=== PATIENT | male | born 1960 | race Caucasian/White ===

== ENCOUNTER 2020-05-30 15:01 | Outpatient (REF) | payer OTHER, SELFPAY ==
[2020-05-30 16:09] LABS: Hematocrit 45.4 % (42-52); Hemoglobin 14.8 g/dl (14.0-18.0); Mean Corpuscular HGB Conc 32.6 g/dl (31.0-36.0); Mean Corpuscular Hemoglobin 27.8 pg (27.0-33.0); Mean Corpuscular Volume 85.3 fL (80-98); Mean Platelet Volume 9.4 fL (9.4-12.4); Platelet Count 401 X10*3/uL (160-400); Red Blood Count 5.32 X10*6/uL (4.60-5.80); Red Cell Distribution Width 13.3 % (11.0-16.0); White Blood Count 7.3 X10*3/uL (4.8-10.8)
[2020-05-30 16:43] LABS: Alanine Aminotransferase 23 U/L (0-40); Albumin Level 4.6 g/dL (3.5-5.0); Alkaline Phosphatase 77 U/L (39-117); Anion Gap 11 (12-20); Aspartate Amino Transferase 26 U/L (5-37); Bilirubin Direct 0.3 mg/dL (0.0-0.5); Bilirubin Total 0.5 mg/dL (0.0-1.0); Blood Urea Nitrogen 19 mg/dL (9-16); Calcium 9.8 mg/dL (8.4-10.2); Carbon Dioxide 31 mmol/L (22-29); Chloride 104 mmol/L (96-108); Cholesterol 146 mg/dL; Estimated Glomerular Filt Rate > 60; Glucose Random 96 mg/dL (60-115); HDL Cholesterol 50 mg/dL; LDL Cholesterol Calculated 77 mg/dl; Magnesium 2.1 mg/dL (1.6-2.6); Potassium 4.8 mmol/l (3.3-5.1); Sodium 141 mmol/L (135-145); Total Protein 7.8 g/dL (6.5-8.0); Triglycerides 97 mg/dL
[2020-05-30 17:05] LABS: Vitamin D 25-OH Total 31.3 ng/mL (>30)
[2020-05-31 14:19] LABS: CT PCR NOT DETECTED (Not Detect.); NG PCR NOT DETECTED (Not Detect.)
[2020-06-02 08:43] LABS: HBS Num1 6.67 mIU/mL (0-7.99); HBsAGNum1 0.15 S/CO (0.00-0.99); HIV AB/AG Nonreactive (Nonreactive); HIV Num 1 0.13 S/CO (0.00-0.99); Hepatitis B Surface Antigen Negative (Negative); ~HepC Num1 12.45 S/CO (0.00-0.79); ~Hepatitis B Surface Antibody NONREACTIVE (Nonreactive); ~Hepatitis C Antibody Reactive (Nonreactive)
[2020-06-02 08:50] LABS: Syphilis Screen Nonreactive (Nonreactive)
[2020-06-02 09:45] LABS: HBc Num1 7.47 S/CO (0.00-0.79)
[2020-06-02 10:06] LABS: HBc Num3 7.47 S/CO; Hepatitis B Core Antibody Reactive (Nonreactive)
[2020-06-03 09:06] LABS: Hepatitis B Core Antibody IgM NON-REACTIVE (NON-REACTIVE)
[2020-06-05 08:50] LABS: Hepatitis A Antibody IgM 0.64 Index (0-0.79); ~Hepatitis A Antibody IgM Nonreactive (Nonreactive)
== END 2020-05-30 15:02 | disposition home or self-care (01) ==
LOC: HO.LAB 15:01
DX: Z00.00 Encounter for general adult medical examination without abnormal findings (principal); R53.83 Other fatigue; J44.9 Chronic obstructive pulmonary disease, unspecified; Z20.2 Contact with and (suspected) exposure to infections with a predominantly sexual mode of transmission
CPT/HCPCS: 36415; 80053; 80061; 80076; 82248; 82306; 83735; 85027; 86704; 86705; 86706; 86709; 86780; 86803; 87340; 87389; 87491; 87591

== ENCOUNTER → 2020-07-09 10:51 | Outpatient (BNVA) | payer OTHER, SELFPAY | PROVIDERS: Visit Provider Internal Medicine | DX: Z76.89 Persons encountering health services in other specified circumstances (principal) ==

== ENCOUNTER → 2020-10-16 10:30 | Outpatient (BNVA) | payer OTHER, SELFPAY | PROVIDERS: PCP Physician Assistant; Visit Provider Internal Medicine ==

== ENCOUNTER 2020-10-23 14:00 | Outpatient (RCR) | payer OTHER, SELFPAY ==
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
--- NOTE | 2020-12-05 13:55 | MHC.PT.DC ---
[facility] [place] Office [place] Office [place] Office [address] Kathryn Guallpa 140 [facility] [phone] F: [phone] F: [phone] F: [phone] F: [phone] Physical Therapy Discharge Report Diagnosis: low back pain Date of Surgery: Date of Evaluation: 10/01/20 Date of Discharge: 10/31/20 Treatments to Date: 4 Cancellations to Date: 0 No Shows to Date: Discharge Status: Achieved Goals Improved Function Independent with HEP Discharge Summary: Pt progressed well over the course of skilled PT making progress on impairments and functional limitations resulting in an improved quality of life. Pt is I with HEP and appropriate to d/c to HEP at this time. Electronically signed by: Dayron Parks, PT Please sign and return to therapist. Thank you for your referral.
== END 2020-12-13 10:49 | disposition home or self-care (01) ==
LOC: HO.PTCHIC 14:00
PROVIDERS: PCP Physician Assistant; Visit Provider Physician Assistant
DX: M51.9 Unspecified thoracic, thoracolumbar and lumbosacral intervertebral disc disorder (principal); M54.5 Low back pain
CPT/HCPCS: 97110; 97161

== ENCOUNTER 2020-11-19 10:22 | Outpatient (REF) | payer OTHER, SELFPAY ==
[2020-11-19 13:47] LABS: Hematocrit 47.9 % (42-52); Hemoglobin 15.3 g/dl (14.0-18.0); Mean Corpuscular HGB Conc 31.9 g/dl (31.0-36.0); Mean Corpuscular Hemoglobin 27.9 pg (27.0-33.0); Mean Corpuscular Volume 87.4 fL (80-98); Mean Platelet Volume 10.8 fL (9.4-12.4); Platelet Count 319 X10*3/uL (160-400); Red Blood Count 5.48 X10*6/uL (4.60-5.80); Red Cell Distribution Width 13.4 % (11.0-16.0); White Blood Count 6.5 X10*3/uL (4.8-10.8)
[2020-11-19 14:18] LABS: Estimated Average Glucose 120 mg/dL; Hemoglobin A1c % 5.8 %
[2020-11-19 14:34] LABS: Alanine Aminotransferase 24 U/L (0-40); Albumin Level 4.6 g/dL (3.5-5.0); Alkaline Phosphatase 77 U/L (39-117); Anion Gap 17 (12-20); Aspartate Amino Transferase 28 U/L (5-37); Bilirubin Total 0.5 mg/dL (0.0-1.0); Blood Urea Nitrogen 23 mg/dL (9-16); Calcium 10.2 mg/dL (8.4-10.2); Carbon Dioxide 24 mmol/L (22-29); Chloride 106 mmol/L (96-108); Estimated Glomerular Filt Rate > 60; Glucose Fasting 116 mg/dL (60-99); Potassium 5.2 mmol/L (3.3-5.1); Sodium 142 mmol/L (135-145); Total Protein 7.9 g/dL (6.5-8.0)
[2020-11-19 14:37] LABS: Prostate Specific Antigen Scr 0.27 ng/mL (<0.05-4.0); TSH reflex Free T4 1.99 uIU/mL (0.32-4.0)
== END 2020-11-19 10:23 | disposition home or self-care (01) ==
LOC: HO.10HDL 10:22
PROVIDERS: Visit Provider Physician Assistant
DX: Z12.5 Encounter for screening for malignant neoplasm of prostate (principal); I10 Essential (primary) hypertension
CPT/HCPCS: 36415; 80053; 83036; 84153; 84443; 85027

== ENCOUNTER 2021-01-02 07:05 | Day surgery (SDC) | payer OTHER, SELFPAY ==
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
[2021-01-02 07:26] VITALS: BMI 22.8
[2021-01-02 07:29] VITALS: BP 146/83; PULSE 82; RESP 16; TEMP 37.1; O2SAT 95
[2021-01-02] MEDS: Sodium Phosphate,Mono-Dibasic 133 ML ENEMA PR ×2 (07:34→07:55)
[2021-01-02 08:05] LABS: Amphetamine Screen Urine Not Detected (Not Detect); Barbiturates, Urine Not Detected (Not Detect); Benzodiazepines Screen Urine Not Detected (Not Detect); Cannabinoid Screen Urine Not Detected (Not Detect); Cocaine Screen Urine Not Detected (Not Detect); Opiate Screen Urine POSITIVE (Not Detect); Phencyclidine Screen Urine Not Detected (Not Detect)
--- NOTE | 2021-01-02 08:11 | MHC.SHP ---
Pre-Procedural Eval Section B Chief Complaint: screening Details of Present Illness: screening Relevant Family History (Specify if Yes): Yes Relevant Social History: None Present Medications: see Short Stay Collaborative assessment Medical History: No relevant PMH History of Previous Operations: No relevant previous surgery Allergies: Allergies Allergy/AdvReac Type Severity Reaction Status Date / Time cat dander [CATS] Allergy Mild ASTHMA Verified 10/16/20 10:32 SYMPTOMS mold Allergy Unknown UNKNOWN Verified 10/16/20 10:32 DUST Allergy Mild ASTHMA Uncoded 04/10/20 14:52 SYMPTOMS Review of Systems Sugical H&P ROS: Negative: Constitution, Cardiovascular, Respiratory, Neurological, Psychiatric, Hem-Onc, Allergic/Immunologic, Gastrointestinal, Genitourinary, Musculoskeletal, Integumentary, Endocrine and Eyes/Ears/Nose/Throat Exam Surgical H&P Exam: Normal: HEENT, Normal: Heart, Normal: Lungs, Normal: Extremities, Normal: Abdomen, Normal: Skin and Normal: Neurological Plan Diagnosis/Plan: Unchanged I have reviewed the history and physical and performed a pertinent physical examination on my patient. No changes have occurred unless specified.
[2021-01-02] MEDS: Lactated Ringers 1,000 ML 100 ML IVCONT (08:41)
--- NOTE | 2021-01-02 08:58 | PC.NURSE ---
Patient stated that he started his prep last night at 6pm and finished it completely. He was not aware it was clear liquids the entire day before, so he ate a chicken salad for lunch and a chicken parm at dinner, last meal being at 530pm. Output is still liquid brown per patient. he stated he gave himself an enema at home and he was straining so much that his hemorrhoids are now bleeding. Dr. Alas aware of all of this. Two enemas given per order, tolerated well. Final output light yellow and clear, no solids.
[2021-01-02 09:25] VITALS: BP 118/75; PULSE 42; RESP 20; TEMP 36.9; O2SAT 98
[2021-01-02 09:39] VITALS: BP 144/81; PULSE 76; RESP 18; TEMP 36.9; O2SAT 96
--- NOTE | 2021-01-02 12:03 | OP_ITS ---
SURGEON: Tor Alas MD INDICATIONS: Colon cancer screening and prior history of adenomatous colon polyps. PREOPERATIVE DIAGNOSIS: POSTOPERATIVE DIAGNOSIS: PROCEDURE PERFORMED: Colonoscopy to the terminal ileum with snare polypectomy. ESTIMATED BLOOD LOSS: COMPLICATIONS: ANESTHESIA: ASSISTANTS: SPECIMENS: MEDICATIONS: Monitored anesthesia care. DESCRIPTION OF PROCEDURE: History and physical performed. The risks and benefits of the procedure were explained to the patient. Informed consent was obtained. The patient was placed in left lateral decubitus position. A digital rectal exam was performed and was found to be normal. The Olympus pediatric video colonoscope was introduced into the rectum and advanced to the cecum without difficulty. The cecum was identified by transillumination, palpation, and identification of the ileocecal valve. Examination was performed and the scope was removed. He tolerated the procedure well and was taken to recovery area in stable condition. FINDINGS: The terminal ileum was normal. The visualized colonic mucosa was normal. The quality of prep was fair with a large amount of undigested food as the patient had chicken parmesan on the day before his bowel before his procedure. Two polyps were identified and removed with a snare, both measured approximately 6 mm. The first located at 60 cm and second was located in the rectum. No other polyps were identified. Retroflexed examination was normal. IMPRESSION: Colon polyps. RECOMMENDATIONS: 1. Follow up the biopsy results. 2. Consider repeat colonoscopy in 2 to 3 years based on limitations of today's prep. MD GLORIA Hoang/GERONIMOL / [id number] MTDD
== END 2021-01-02 10:05 | disposition home or self-care (01) ==
PROVIDERS: Nurse Practitioner; PCP Internal Medicine; Visit Provider Internal Medicine Gastroenterology
PROC: 0DJD8ZZ Inspection of Lower Intestinal Tract, Via Natural or Artificial Opening Endoscopic (ICD-10-PCS; CPT 45378; principal; 2021-01-02 08:10)
DX: Z12.11 Encounter for screening for malignant neoplasm of colon (principal); Z86.010 Personal history of colon polyps; D12.4 Benign neoplasm of descending colon; D12.8 Benign neoplasm of rectum; I10 Essential (primary) hypertension; J44.9 Chronic obstructive pulmonary disease, unspecified; B19.20 Unspecified viral hepatitis C without hepatic coma; Q89.01 Asplenia (congenital); F14.10 Cocaine abuse, uncomplicated; F11.10 Opioid abuse, uncomplicated; Z87.828 Personal history of other (healed) physical injury and trauma; Z18.89 Other specified retained foreign body fragments; Z90.81 Acquired absence of spleen
CPT/HCPCS: 45385; 80307; 88305

== ENCOUNTER → 2021-02-05 11:12 | Outpatient (BNVA) | payer OTHER, SELFPAY | PROVIDERS: PCP Internal Medicine; Visit Provider Internal Medicine | DX: J44.9 Chronic obstructive pulmonary disease, unspecified (principal); I10 Essential (primary) hypertension; Q89.01 Asplenia (congenital); B19.20 Unspecified viral hepatitis C without hepatic coma; J30.81 Allergic rhinitis due to animal (cat) (dog) hair and dander; J30.89 Other allergic rhinitis; Z79.899 Other long term (current) drug therapy | CPT/HCPCS: 99212 ==

== ENCOUNTER → 2021-08-04 10:08 | Outpatient (BNVA) | payer OTHER, SELFPAY | PROVIDERS: PCP Internal Medicine; Visit Provider Internal Medicine | DX: J44.9 Chronic obstructive pulmonary disease, unspecified (principal) | CPT/HCPCS: 94010; 99212 ==

== ENCOUNTER → 2021-10-13 10:49 | Outpatient (BNVA) | payer OTHER, SELFPAY | PROVIDERS: PCP Internal Medicine; Visit Provider Internal Medicine | DX: J44.9 Chronic obstructive pulmonary disease, unspecified (principal); M54.50 Low back pain, unspecified | CPT/HCPCS: 99212 ==

== ENCOUNTER 2021-10-22 12:35 | Emergency (ER) | payer OTHER, SELFPAY ==
--- NOTE | 2021-10-22 | ECG_ITS ---
Test Reason : htn / fatigue Blood Pressure : / mmHG Vent. Rate : 090 BPM Atrial Rate : 090 BPM P-R Int : 182 ms QRS Dur : 118 ms QT Int : 374 ms P-R-T Axes : 069 -13 065 degrees QTc Int : 457 ms Normal sinus rhythm Inferior infarct , age undetermined Abnormal ECG When compared with ECG of 18-DEC-2013 00:34, Criteria for Lateral infarct are no longer Present Questionable change in QRS axis Referred By: Generic ED Physician Electronically Signed By:MANUEL THOMPSON
--- NOTE | ~2021-10-22 | CT_ITS ---
EXAMINATION: CT HEAD WITHOUT CONTRAST CLINICAL INFORMATION: Dizziness, vertigo, unsteady gait. COMPARISON: None. TECHNIQUE: Contiguous axial imaging was performed from the skull base to vertex without intravenous administration of contrast. This CT examination was performed using dose optimization techniques as appropriate, variously including the following: *Automated exposure control *Adjustment of mA and/or kV according to patient size (this includes techniques or standardized protocols for targeted exams where dose is matched to indication/reason for exam; i.e. extremities or head) *Use of iterative reconstruction technique DLP: 699 mGy-cm FINDINGS: There is no evidence of acute intracranial hemorrhage or edematous territorial infarction. There is no abnormal attenuation within the brain parenchyma. Webber-white matter differentiation is preserved. The ventricles are normal in size and configuration. No evidence for obstructive hydrocephalus. No abnormal mass effect or midline shift. No extra-axial fluid collections. No acute soft tissue or osseous abnormalities. The mastoid air cells and paranasal sinuses are clear. CT/CT head/brain wo con IMPRESSION: No evidence of acute intracranial hemorrhage or edematous territorial infarction.
[2021-10-22 13:50] VITALS: BP 162/91; PULSE 99; RESP 18; TEMP 36.4; O2SAT 96; BMI 24.6
[2021-10-22 14:05] LABS: MANUAL DIFF FLAG NO
[2021-10-22 14:08] LABS: Basophils Percent Auto 0.3 % (0-2); Eosinophils Absolute Auto 0.1 X10*3/uL (0.0-0.4); Eosinophils Percent Auto 0.3 % (0-4); Hematocrit 45.6 % (42.0-52.0); Hemoglobin 15.5 g/dl (14.0-18.0); Imm Gran Abs Auto 0.05 X10*3/uL (0.00-0.03); Imm Gran Pct Auto 0.3 % (0.0-0.4); Lymphocytes Percent Auto 13.4 % (20-40); Mean Corpuscular Hemoglobin 29.3 pg (27.0-33.0); Mean Corpuscular Volume 86.2 fL (80.0-98.0); Mean Platelet Volume 8.7 fL (9.4-12.4); Monocytes Percent Auto 6.8 % (2-11); Neutrophils Absolute Auto 11.5 x10*3/uL (2.0-8.3); Neutrophils Percent Auto 78.9 % (45-73); Platelet Count 431 X10*3/uL (160-400); Red Blood Count 5.29 X10*6/uL (4.60-5.80); Red Cell Distribution Width 14.6 % (11.0-16.0); White Blood Count 14.6 X10*3/uL (4.8-10.8)
[2021-10-22 14:33] LABS: Anion Gap 11 (12-20); Blood Urea Nitrogen 21 mg/dL (9-16); Calcium 10.6 mg/dL (8.4-10.2); Carbon Dioxide 31 mmol/L (22-29); Chloride 104 mmol/L (96-108); Creatinine Clr Calc Pharmacy 73.1; Estimated Glomerular Filt Rate > 60; Glucose Random 129 mg/dL (60-115); Potassium 4.9 mmol/L (3.3-5.1); Sodium 141 mmol/L (135-145)
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
[2021-10-22 17:22] VITALS: BP 148/86; PULSE 84; RESP 16; TEMP 36.8; O2SAT 97
[2021-10-22 17:37] VITALS: BP 133/95; PULSE 99; RESP 18; O2SAT 98
--- NOTE | 2021-10-22 17:44 | PC.NURSE ---
no neuro deficits or headache. states dizziness is improving.
[2021-10-22] MEDS: Meclizine HCl 25 MG TABLET PO (17:52)
== END 2021-10-22 19:22 | disposition home or self-care (01) ==
PROVIDERS: Emergency Provider Internal Medicine; PCP Nurse Practitioner Family
DX: R42 Dizziness and giddiness (principal); I10 Essential (primary) hypertension; F41.9 Anxiety disorder, unspecified; F11.20 Opioid dependence, uncomplicated
CPT/HCPCS: 36415; 70450; 80048; 85025; 93005; 99284

== ENCOUNTER 2022-02-09 18:00 | Outpatient (REF) | payer OTHER, SELFPAY ==
[2022-02-09 18:42] LABS: Influenza A PCR NEGATIVE (Negative); Influenza B PCR NEGATIVE (Negative); Resp Syncy Virus RNA Qual PCR NEGATIVE (Negative); SARS COV2 PCR INHOUSE NEGATIVE (Negative)
== END 2022-02-09 18:01 | disposition home or self-care (01) ==
LOC: HO.LNP 18:00
PROVIDERS: Visit Provider Emergency Medicine
DX: R68.89 Other general symptoms and signs (principal); Z20.822 Contact with and (suspected) exposure to COVID-19
CPT/HCPCS: 0241U

== ENCOUNTER → 2022-02-22 13:11 | Outpatient (BNVA) | payer OTHER, SELFPAY | PROVIDERS: PCP Nurse Practitioner Family; Visit Provider Internal Medicine | DX: J44.9 Chronic obstructive pulmonary disease, unspecified (principal) | CPT/HCPCS: 99212 ==

== ENCOUNTER → 2022-04-27 10:40 | Outpatient (BNVA) | payer OTHER, SELFPAY | PROVIDERS: PCP Nurse Practitioner Family; Visit Provider Internal Medicine | DX: J44.9 Chronic obstructive pulmonary disease, unspecified (principal) | CPT/HCPCS: 99212 ==

== ENCOUNTER → 2022-06-28 13:29 | Outpatient (BNVA) | payer OTHER, SELFPAY | PROVIDERS: PCP Nurse Practitioner Family; Visit Provider Internal Medicine | DX: J44.9 Chronic obstructive pulmonary disease, unspecified (principal); Z79.899 Other long term (current) drug therapy | CPT/HCPCS: 99212 ==

== ENCOUNTER 2022-08-02 09:17 | Outpatient (REF) | payer OTHER, SELFPAY ==
--- NOTE | ~2022-08-02 | XR_ITS ---
EXAMINATION: XR CHEST CLINICAL INFORMATION: Post Covid condition COMPARISON: X-ray 06/24/2017 TECHNIQUE: 2 views of the chest were obtained. FINDINGS: The cardiomediastinal silhouette is within normal limits. Redemonstrated is a metallic density over the left midchest, which is unchanged in position on the frontal projection. Lungs are symmetrically expanded. There is hazy opacity projected over bilateral lower lungs. No pleural effusion. No pulmonary edema or pneumothorax. XR/XR chest 2V IMPRESSION: Hazy bibasilar opacities could reflect subtle infiltrate from infectious/inflammatory process.
[2022-08-02 09:58] LABS: MANUAL DIFF FLAG NO
[2022-08-02 10:13] LABS: Basophils Absolute Auto 0.1 X10*3/uL (0.0-0.2); Basophils Percent Auto 0.7 % (0-2); Eosinophils Absolute Auto 0.2 X10*3/uL (0.0-0.4); Eosinophils Percent Auto 1.6 % (0-4); Hematocrit 46.8 % (42.0-52.0); Hemoglobin 15.6 g/dl (14.0-18.0); Imm Gran Abs Auto 0.09 X10*3/uL (0.00-0.03); Imm Gran Pct Auto 0.7 % (0.0-0.4); Lymphocytes Absolute Auto 2.6 X10*3/uL (1.2-4.9); Lymphocytes Percent Auto 21.3 % (20-40); Mean Corpuscular HGB Conc 33.3 g/dl (31.0-36.0); Mean Corpuscular Hemoglobin 28.6 pg (27.0-33.0); Mean Corpuscular Volume 85.9 fL (80.0-98.0); Mean Platelet Volume 9.1 fL (9.4-12.4); Monocytes Absolute Auto 1.1 X10*3/uL (0.1-1.2); Monocytes Percent Auto 9.5 % (2-11); Neutrophils Percent Auto 66.2 % (45-73); Platelet Count 474 X10*3/uL (160-400); Red Blood Count 5.45 X10*6/uL (4.60-5.80); White Blood Count 12.1 X10*3/uL (4.8-10.8)
== END 2022-08-02 09:18 | disposition home or self-care (01) ==
LOC: HO.LAB 09:17
PROVIDERS: PCP Nurse Practitioner Family; Visit Provider Internal Medicine
DX: J44.9 Chronic obstructive pulmonary disease, unspecified (principal); U09.9 Post COVID-19 condition, unspecified; Z79.899 Other long term (current) drug therapy
CPT/HCPCS: 36415; 71046; 85025; 86141; 99212

== ENCOUNTER → 2022-08-31 14:19 | Outpatient (BNVA) | payer OTHER, SELFPAY | PROVIDERS: PCP Nurse Practitioner Family; Visit Provider Internal Medicine | DX: J44.9 Chronic obstructive pulmonary disease, unspecified (principal); U09.9 Post COVID-19 condition, unspecified; R05.9 Cough, unspecified | CPT/HCPCS: 99212 ==

== ENCOUNTER → 2022-11-01 10:45 | Outpatient (BNVA) | payer OTHER, SELFPAY | PROVIDERS: PCP Nurse Practitioner Family; Visit Provider Internal Medicine | DX: J44.9 Chronic obstructive pulmonary disease, unspecified (principal); R05.9 Cough, unspecified | CPT/HCPCS: 99212 ==

== ENCOUNTER → 2022-12-27 11:26 | Outpatient (BNVA) | payer OTHER, SELFPAY | PROVIDERS: PCP Nurse Practitioner Family; Visit Provider Internal Medicine | DX: J44.9 Chronic obstructive pulmonary disease, unspecified (principal); R05.9 Cough, unspecified | CPT/HCPCS: 99212 ==

== ENCOUNTER 2023-03-04 09:27 | Outpatient (REF) | payer OTHER, SELFPAY ==
--- NOTE | ~2023-03-04 | US_ITS ---
EXAMINATION: US ABDOMEN COMPLETE CLINICAL INFORMATION: Cirrhosis of liver without ascites. COMPARISON: Abdomen x-ray dated 05/08/2015. CT abdomen and pelvis without contrast dated 05/05/2015. Ultrasound abdomen complete dated 11/25/2009. TECHNIQUE: Real-time imaging of the abdominal viscera. Technically difficult study secondary to bowel gas. FINDINGS: PANCREAS: Pancreas could not be seen secondary to overlying bowel gas. ABDOMINAL AORTA: The proximal and distal segments are normal in caliber. The mid abdominal aorta could not be seen. INFERIOR VENA CAVA: Visualized portions are normal. LIVER: The liver is normal in size. The liver contour is normal. There is diffuse increased liver parenchymal echogenicity, consistent with hepatic steatosis. There are areas of focal fatty sparing seen adjacent to the gallbladder. No focal hepatic lesion. There is no intrahepatic biliary duct dilatation seen. GALLBLADDER: Normal. The gallbladder is physiologically distended without evidence of stones, sludge, polyps, wall thickening or pericholecystic fluid. COMMON BILE DUCT: Normal in caliber measuring 0.8 cm in diameter. RIGHT KIDNEY: No hydronephrosis or renal calculi. The kidney measures 9.9 cm in maximum dimension. A benign 4.1 cm Bosniak class I renal cyst is noted which requires no additional imaging or follow up. No solid renal masses are seen. LEFT KIDNEY: No hydronephrosis. No renal calculi or focal parenchymal lesions. The kidney measures 10.9 cm in maximum dimension. A benign 1.7 cm Bosniak class I renal cyst is noted which requires no additional imaging or follow up. No solid renal masses are seen. SPLEEN: Surgically removed. A residual small splenule is noted measuring 7.8 x 4.2 x 4.4 cm. FREE FLUID: None. US/US abdomen complete IMPRESSION: 1. Hepatic steatosis with areas of focal fatty sparing. 2. Benign Bosniak class I renal cysts need no additional imaging or follow up. 3. Status post splenectomy with residual splenic tissue/splenule.
== END 2023-03-04 09:28 | disposition home or self-care (01) ==
LOC: HO.US 09:27
PROVIDERS: PCP Nurse Practitioner Family; Visit Provider Internal Medicine Gastroenterology
DX: K74.60 Unspecified cirrhosis of liver (principal)
CPT/HCPCS: 76700

== ENCOUNTER 2023-05-09 10:00 | Outpatient (AMB) | payer OTHER, SELFPAY ==
[2023-05-09 10:02] VITALS: BP 104/64; PULSE 99; O2SAT 94; BMI 26.6
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
== END 2023-05-09 10:20 | disposition home or self-care (01) ==
PROVIDERS: PCP Nurse Practitioner Family; Visit Provider Internal Medicine
DX: J44.9 Chronic obstructive pulmonary disease, unspecified (principal); R05.9 Cough, unspecified
CPT/HCPCS: 99213

== ENCOUNTER → 2023-05-09 10:00 | Outpatient (BNVA) | payer OTHER, SELFPAY | PROVIDERS: PCP Nurse Practitioner Family; Visit Provider Internal Medicine | DX: J44.9 Chronic obstructive pulmonary disease, unspecified (principal); R05.9 Cough, unspecified | CPT/HCPCS: 99212 ==

== ENCOUNTER 2023-05-17 08:37 | Day surgery (SDC) | payer OTHER, SELFPAY ==
[2023-05-13 11:45] VITALS: BMI 26.6
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
[2023-05-17 09:15] VITALS: BP 162/93; PULSE 88; RESP 18; TEMP 36.6; O2SAT 96
[2023-05-17] MEDS: Lactated Ringers 1,000 ML 100 ML IVCONT (09:20)
--- NOTE | 2023-05-17 09:20 | P.HPSUR_ITS ---
Pre-Procedural Eval Section A Date of Service: 05/17/23 Section B Chief Complaint: GERD, Encounter for screening for malignant Details of Present Illness: see h&p no changes Relevant Family History (Specify if Yes): No Relevant Social History: None Present Medications: see Short Stay Collaborative assessment Medical History: No relevant PMH Allergies: Allergies Allergy/AdvReac Type Severity Reaction Status Date / Time cat dander [CATS] Allergy Mild ASTHMA Verified 05/09/23 10:18 SYMPTOMS mold Allergy Unknown UNKNOWN Verified 05/09/23 10:18 DUST Allergy Mild ASTHMA Uncoded 05/09/23 10:18 SYMPTOMS Review of Systems Sugical H&P ROS: Negative: Constitution, Cardiovascular, Respiratory, Neurological, Psychiatric, Hem-Onc, Allergic/Immunologic, Gastrointestinal, Genitourinary, Musculoskeletal, Integumentary, Endocrine and Eyes/Ears/Nose/Th roat Exam Surgical H&P Exam: Normal: HEENT, Normal: Heart, Normal: Lungs, Normal: Extremities, Normal: Abdomen, Normal: Skin and Normal: Neurological Plan Diagnosis/Plan: Unchanged I have reviewed the history and physical and performed a pertinent physical examination on my patient. No changes have occurred unless specified. Time Spent With Patient Time: Total time managing care of this patient today ____ minutes.
--- NOTE | 2023-05-17 10:00 | PM.OP ---
Brief Operative Note Date of Service: 05/17/23 Pre-op diagnosis: gerd cirrhosis screening Post-op diagnosis: same Surgeon: Tor Alas MD Anesthesia: MAC Was an Ingot Supervisor used for this Procedure?: No Estimated blood loss (mL): 2 Pathology: other Condition: stable Disposition: PACU
[2023-05-17 10:02] VITALS: BP 91/57; PULSE 74; RESP 10; TEMP 36.6; O2SAT 93
[2023-05-17 10:17] VITALS: BP 111/75; PULSE 86; RESP 17; TEMP 36.6; O2SAT 95
--- NOTE | 2023-05-17 10:31 | OP_ITS ---
DATE OF SERVICE: 05/17/2023 SURGEON: Tor Alas MD INDICATIONS: 1. Gastroesophageal reflux disease. 2. Cirrhosis. 3. Colon cancer screening. PREOPERATIVE DIAGNOSIS: POSTOPERATIVE DIAGNOSIS: PROCEDURE PERFORMED: ESTIMATED BLOOD LOSS: COMPLICATIONS: ANESTHESIA: Monitored anesthesia care. ASSISTANTS: SPECIMENS: PROCEDURES PERFORMED: Upper endoscopy, colonoscopy to the terminal ileum with biopsy. DESCRIPTION OF PROCEDURE: A history and physical were performed. The risks and benefits of the procedure were explained to the patient. Informed consent was obtained. The patient was placed in the left lateral decubitus position. The Olympus video gastroscope was introduced into the esophagus, stomach, and duodenum. Examination was performed, and the scope was removed. He was repositioned for colonoscopy. A digital rectal exam was performed and was found to be normal. The Olympus pediatric video colonoscope was introduced into the rectum and advanced to the cecum. The cecum was identified by transillumination, palpation, and identification of the ileocecal valve. Examination was performed, and the scope was removed. He tolerated both procedures well and was taken to recovery in stable condition. FINDINGS: Upper endoscopy. 1. Esophagus. The esophagus was normal. There was no esophagitis. 2. Stomach. The stomach showed no evidence of masses, ulcers, or polyps. There was no portal hypertensive gastropathy. 3. Duodenum, the bulb and second portion were normal. Colonoscopy: Limited views of the terminal ileum were normal. There was some liquid stool and small amounts of stool chunks that were present in the right colon and sigmoid, limiting sensitivity examination for detection of small polyps. This was washed and suctioned. A single polyp measuring less than 5 mm was identified at 75 cm and removed with the biopsy forceps. No other polyps were identified. Retroflexed examination showed moderate-sized internal hemorrhoids. IMPRESSION: 1. Normal upper endoscopy. 2. Colon polyp. RECOMMENDATION: 1. Follow up the biopsy results. MD GLORIA Hoang/PADMINI / [id number]
== END 2023-05-17 10:55 | disposition home or self-care (01) ==
PROVIDERS: PCP Nurse Practitioner Family; Visit Provider Internal Medicine Gastroenterology
PROC: (CPT 43235; principal; 2023-05-17 09:40)
DX: K21.9 Gastro-esophageal reflux disease without esophagitis (principal); K74.60 Unspecified cirrhosis of liver; Z12.11 Encounter for screening for malignant neoplasm of colon; D12.4 Benign neoplasm of descending colon; K64.8 Other hemorrhoids; Z86.010 Personal history of colon polyps; J44.9 Chronic obstructive pulmonary disease, unspecified; I10 Essential (primary) hypertension; F19.10 Other psychoactive substance abuse, uncomplicated; B19.20 Unspecified viral hepatitis C without hepatic coma
CPT/HCPCS: 43235; 45380; 88305

== ENCOUNTER 2023-06-30 10:19 | Outpatient (AMB) | payer OTHER, SELFPAY ==
[2023-06-30 10:25] VITALS: BP 110/64; PULSE 100; O2SAT 94; BMI 26.0
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
== END 2023-06-30 10:53 | disposition home or self-care (01) ==
PROVIDERS: PCP Nurse Practitioner Family; Visit Provider Internal Medicine
DX: J44.9 Chronic obstructive pulmonary disease, unspecified (principal); R05.9 Cough, unspecified
CPT/HCPCS: 99213

== ENCOUNTER → 2023-06-30 10:19 | Outpatient (BNVA) | payer OTHER, SELFPAY | PROVIDERS: PCP Nurse Practitioner Family; Visit Provider Internal Medicine | DX: J44.9 Chronic obstructive pulmonary disease, unspecified (principal); R05.9 Cough, unspecified | CPT/HCPCS: 99212 ==

== ENCOUNTER 2023-09-08 09:49 | Outpatient (AMB) | payer MEDICARE, SELFPAY ==
[2023-09-08 09:53] VITALS: BP 130/64; PULSE 112; O2SAT 94; BMI 25.7
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
== END 2023-09-08 10:31 | disposition home or self-care (01) ==
PROVIDERS: PCP Nurse Practitioner Family; Visit Provider Internal Medicine
DX: J44.1 Chronic obstructive pulmonary disease with (acute) exacerbation (principal); R00.0 Tachycardia, unspecified; F41.9 Anxiety disorder, unspecified
CPT/HCPCS: 99214

== ENCOUNTER → 2023-09-08 09:49 | Outpatient (BNVA) | payer MEDICARE, SELFPAY | PROVIDERS: PCP Nurse Practitioner Family; Visit Provider Internal Medicine | DX: J44.1 Chronic obstructive pulmonary disease with (acute) exacerbation (principal); R00.0 Tachycardia, unspecified; F41.9 Anxiety disorder, unspecified | CPT/HCPCS: 99212 ==

== ENCOUNTER 2023-09-22 09:58 | Outpatient (AMB) | payer MEDICARE, SELFPAY ==
[2023-09-22 10:11] VITALS: BP 120/72; PULSE 106; O2SAT 94; BMI 25.2
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
== END 2023-09-22 10:40 | disposition home or self-care (01) ==
PROVIDERS: PCP Nurse Practitioner Family; Visit Provider Internal Medicine
DX: J44.1 Chronic obstructive pulmonary disease with (acute) exacerbation (principal); R05.9 Cough, unspecified; J40 Bronchitis, not specified as acute or chronic
CPT/HCPCS: 99213

== ENCOUNTER → 2023-09-22 09:58 | Outpatient (BNVA) | payer MEDICARE, SELFPAY | PROVIDERS: PCP Nurse Practitioner Family; Visit Provider Internal Medicine | DX: J44.1 Chronic obstructive pulmonary disease with (acute) exacerbation (principal); J40 Bronchitis, not specified as acute or chronic; R05.9 Cough, unspecified | CPT/HCPCS: 99212 ==

== ENCOUNTER 2023-11-08 10:30 | Outpatient (AMB) | payer MEDICARE, SELFPAY ==
[2023-11-08 10:33] VITALS: BP 142/78; PULSE 100; O2SAT 97; BMI 25.7
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
== END 2023-11-08 10:53 | disposition home or self-care (01) ==
PROVIDERS: PCP Nurse Practitioner Family; Visit Provider Internal Medicine
DX: J44.9 Chronic obstructive pulmonary disease, unspecified (principal); R05.9 Cough, unspecified
CPT/HCPCS: 99213

== ENCOUNTER → 2023-11-08 10:30 | Outpatient (BNVA) | payer MEDICARE, SELFPAY | PROVIDERS: PCP Nurse Practitioner Family; Visit Provider Internal Medicine | DX: J44.9 Chronic obstructive pulmonary disease, unspecified (principal); R05.9 Cough, unspecified | CPT/HCPCS: 99212 ==

== ENCOUNTER 2024-01-12 12:27 | Emergency (ER) | payer MEDICARE, SELFPAY ==
--- NOTE | ~2024-01-12 | XR_ITS ---
EXAMINATION: XR CHEST CLINICAL INFORMATION: Shortness of breath COMPARISON: 08/02/2022 TECHNIQUE: 2 views of the chest were obtained. FINDINGS: Metallic density again seen in the subcutaneous tissues of the left anterior chest wall. Otherwise, no significant abnormality is noted involving the heart, lungs, mediastinum, bony thorax or soft tissues. XR/XR chest 2V IMPRESSION: No acute intrathoracic disease.
[2024-01-12 12:34] VITALS: BP 175/82; PULSE 88; RESP 19; TEMP 36.6; O2SAT 98; BMI 23.6
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
[2024-01-12 14:32] VITALS: BP 148/79; PULSE 89; RESP 18; TEMP 36.7; O2SAT 98
--- NOTE | 2024-01-12 14:33 | PC.NURSE ---
patient a&ox3, vss, pt stating he feels as if he cant breathe, cxr previously performed, pt speaking in full sentences and ambulating without noted sob, lungs clear upon auscultation- O2 sat WNL, pt given gingerale as po challange- pt swallowing gingerale and coughs after completly swallowing.
[2024-01-12 14:44] VITALS: BP 128/68
[2024-01-12] MEDS: Lidocaine HCl Viscous 2 % 15 ML SOLUTION 5 ML MUCOUS MEM (15:07)
--- NOTE | 2024-01-12 15:08 | PC.NURSE ---
pt medicated per order
[2024-01-12 15:17] VITALS: BP 128/68; PULSE 88; RESP 18; TEMP 36.7; O2SAT 98
== END 2024-01-12 15:18 | disposition home or self-care (01) ==
PROVIDERS: Emergency Provider Emergency Medicine; PCP Nurse Practitioner Family
DX: R09.A2 Foreign body sensation, throat (principal); R06.02 Shortness of breath
CPT/HCPCS: 71046; 99283

== ENCOUNTER 2024-02-08 11:00 | Outpatient (AMB) | payer MEDICARE, SELFPAY ==
[2024-02-08 11:06] VITALS: BP 110/68; PULSE 93; O2SAT 96; BMI 23.6
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
== END 2024-02-08 11:19 | disposition home or self-care (01) ==
PROVIDERS: PCP Nurse Practitioner Family; Visit Provider Internal Medicine
DX: J44.9 Chronic obstructive pulmonary disease, unspecified (principal); R05.9 Cough, unspecified; J30.9 Allergic rhinitis, unspecified
CPT/HCPCS: 99213

== ENCOUNTER → 2024-02-08 11:00 | Outpatient (BNVA) | payer MEDICARE, SELFPAY | PROVIDERS: PCP Nurse Practitioner Family; Visit Provider Internal Medicine | DX: J44.9 Chronic obstructive pulmonary disease, unspecified (principal); J30.9 Allergic rhinitis, unspecified; Z79.899 Other long term (current) drug therapy | CPT/HCPCS: 99212 ==

== ENCOUNTER 2024-04-09 10:55 | Outpatient (AMB) | payer MEDICARE, SELFPAY ==
[2024-04-09 10:57] VITALS: BP 140/82; PULSE 92; O2SAT 96; BMI 23.3
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
== END 2024-04-09 11:16 | disposition home or self-care (01) ==
PROVIDERS: PCP Nurse Practitioner Family; Visit Provider Internal Medicine
DX: J44.1 Chronic obstructive pulmonary disease with (acute) exacerbation (principal); F41.9 Anxiety disorder, unspecified; J30.9 Allergic rhinitis, unspecified
CPT/HCPCS: 99213

== ENCOUNTER → 2024-04-09 10:55 | Outpatient (BNVA) | payer MEDICARE, SELFPAY | PROVIDERS: PCP Nurse Practitioner Family; Visit Provider Internal Medicine | DX: J44.1 Chronic obstructive pulmonary disease with (acute) exacerbation (principal); J30.9 Allergic rhinitis, unspecified; F41.9 Anxiety disorder, unspecified | CPT/HCPCS: 99212 ==

== ENCOUNTER 2024-10-08 13:19 | Outpatient (AMB) | payer MEDICARE, SELFPAY ==
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
[2024-10-08 13:24] VITALS: BP 120/72; PULSE 80; O2SAT 97; BMI 23.1
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
--- OUTSIDE RECORDS SUMMARY | 2024-10-08 15:28 | XMS_ITS ---
Author Organization [facility] Address [address] [place] [address] Care Team Providers Care Forms Analyst Name Role Phone JAYLEN LEDESMA Primary Care Provider Unava velvet Alas Jr, Tor Unavailable REASON FOR VISIT pathology Encounters Encounter Location Date Provider Diagnosis [facility] [address] [place] [address] 05/19/2023 Tor Alas Jr Plan Of Treatment Next Appt Details Provider Name:Tor diaz Jr, 06/12/2025 10:00:00 AM, [address], [address], [place], [address], Progress Notes * FRANK SHUKLAOB:1960 ( 62 yo M)Acc No.[id number]:05/19/2023 Patient:?TARIQ SHUKLA :1960???Age:62 Y???Sex:Male Address: [address] [place] [address] * true * Date:? Generated for Printi ng/Farichardg/eTransmitting on:?10/08/2024 03:28 PM EDT
--- OUTSIDE RECORDS SUMMARY | 2024-10-08 15:28 | XMS_ITS | Continuity of Care Document ---
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 Name Role Phone Delmy COMMERCIAL AGENT, Anaid M Primary Care Physician Encounter [facility] [place] Date(s): 09/21/24 - 09/24/[address] [address] Discharge Disposition: A-D/C Home Attending Physician: Jareth Loza MD Admitting Physician: Irwin Campbell MD Referring Physician: Not on Staff, Referring MD Encounter Type: Disch IP Allergies, Adverse Reactions, Alerts No Known Medication Allergies Substance Criticality Severity Reaction Reaction Severity Status Cats Active Dust Active Mold Active Immunizations Given and Recorded Vaccine Date Status Refusal Reason influenza virus vaccine, inactivated 1 05/25/24 Gi john influenza virus vaccine, inactivated 06/07/23 Adriel rded influenza virus vaccine, inactivated 06/30/21 Adriel rded influenza virus vaccine, inactivated 04/13/20 Adriel rded influenza virus vaccine, inactivated 05/04/19 Adriel rded influenza virus vaccine, inactivated 05/09/17 Adriel rded influenza virus vaccine, inactivated 05/13/16 Adriel rded influenza virus vaccine, inactivated 05/06/15 Adriel rded influenza virus vaccine, inactivated 06/06/10 Adriel rded RSV vaccine preF3, recombinant 08/08/23 Recorded SARS-CoV-2(COVID-19)mRNA-LNP vac([id number]) 06/07/23 Recorded pneumococcal 13-valent vaccine 04/13/22 Given SARS-CoV-2 (COVID-19) mRNA-1273 vaccine 12/14/21 R ecorded SARS-CoV-2 (COVID-19) mRNA-1273 vaccine 07/14/21 R ecorded SARS-CoV-2 (COVID-19) mRNA BNT-162b2 vac 10/11/20 Recorded SARS-CoV-2 (COVID-19) mRNA BNT-162b2 vac 09/20/20 Recorded pneumococcal 23-valent vaccine 09/10/20 Recorded tetanus/diphtheria/pertussis, acel(Tdap) 09/10/20 Recorded zoster vaccine, inactivated 03/01/19 Recorded zoster vaccine, inactivated 12/09/18 Recorded 1Result Comment: [facility] vial [id number] Medications Albuterol (Eqv-Proventil HFA) 90 mcg/inh inhalation aerosol 2 puffs, Inhalation, Every 6 hours, 0 Refills, Maintenance, 01/20/21 9:54:00 AM EDT, Partial fill upon patient request if the prescription is for a schedule II opioid drug. Start Date: 01/20/21 Status: Ordered Repeat number: 1 aspirin 81 mg oral delayed release tablet 81 mg, By Mouth, Daily, # 30 tablet, Refills 2, Tot. Refills 2, Maintenance, 09/24/24 8:31:00 AM EST,Route to Pharmacy Electronically, [facility], Partial fill upon patient request if the prescription is for a schedule II opioid drug., 175, cm, 09/24/24 3:49:00 EST, Height, 69.5, kg, 09/21/24 18:47:00 EST, Dry Weight Start Date: 09/24/24 Stop Date: 12/23/24 Status: Ordered Quantity: 30.0 Unit: tablet Repeat number: 3 atorvastatin 80 mg oral tablet = 80 mg, By Mouth, Daily at bedtime, # 30 tablet, 2 Refills, Maintenance, 09/24/24 8:31:00 AM EST, Tablet, [facility], Partial fill upon patient request if the prescription is for a schedule II opioid drug., 175, cm, 09/24/24 3:49:00 EST, Height, 69.5, kg, 09/21/24 18:47:00 EST, Dry Weight Start Date: 09/24/24 Stop Date: 12/23/24 Status: Ordered Quantity: 30.0 Unit: tablet Repeat number: 3 clopidogrel 75 mg oral tablet 75 mg, By Mouth, Daily, # 30 tablet, Refills 2, Tot. Refills 2, Maintenance, 09/24/24 8:31:00 AM EST,Route to Pharmacy Electronically, [facility], Partial fill upon patient request if the prescription is for a schedule II opioid drug., 175, cm, 09/24/24 3:49:00 EST, Height, 69.5, kg, 09/21/24 18:47:00 EST, Dry Weight Start Date: 09/24/24 Stop Date: 12/23/24 Status: Ordered Quantity: 30.0 Unit: tablet Repeat number: 3 dapagliflozin 10 mg oral tablet = 10 mg, By Mouth, Daily, # 30 tablet, 2 Refills, Maintenance, 09/24/24 8:31:00 AM EST, Tablet, [facility], Partial fill upon patient request if the prescription is for a schedule II opioid drug., 175, cm, 09/24/24 3:49:00 EST, Height, 69.5, kg, 09/21/24 18:47:00 EST, Dry Weight Start Date: 09/24/24 Stop Date: 12/23/24 Status: Ordered Quantity: 30.0 Unit: tablet Repeat number: 3 magnesium oxide 400 mg oral capsule 1 capsule = 400 mg, By Mouth, Daily, # 75 capsule, 0 Refills, Maintenance, 09/22/24 1:40:00 AM EST, Capsule, Partial fill upon patient request if the prescription is for a schedule II opioid drug. Start Date: 09/22/24 Status: Ordered Quantity: 75.0 Unit: capsule Repeat number: 1 Methadone See Instructions, Liquid-22mg per day, 0 Refills, Maintenance, 04/21/21 7:07:00 AM EDT, Partial fillupon patient request if the prescription is for a schedule II opioid drug. Start Date: 04/21/21 Status: Ordered Repeat number: 1 Methadone Liquid 16 mg, Solution, By Mouth, 09/24/24 9:00:00 AM EST Start Date: 09/24/24 Stop Date: 09/24/24 Status: Completed Repeat number: 1 metoprolol 25 mg oral tablet, extended release 25 mg, XL Tablet, By Mouth, 09/24/24 9:00:00 AM EST Start Date: 09/24/24 Stop Date: 09/24/24 Status: Completed Repeat number: 1 metoprolol 25 mg oral tablet, extended release 25 mg, By Mouth, Daily, # 30 tablet, Refills 2, Tot. Refills 2, Maintenance, 09/24/24 8:31:00 AM EST,Route to Pharmacy Electronically, [facility], Partial fill upon patient request if the prescription is for a schedule II opioid drug., 175, cm, 09/24/24 3:49:00 EST, Height, 69.5, kg, 09/21/24 18:47:00 EST, Dry Weight Start Date: 09/24/24 Stop Date: 12/23/24 Status: Ordered Quantity: 30.0 Unit: tablet Repeat number: 3 Symbicort 160mcg/4.5mcg Inhaler 2, puffs, Inhalation, 2 times a day, # 6 Gm, Refills 0, Maintenance, 11/22/23 10:07:00 AM EDT, Aerosol Start Date: 11/22/23 Stop Date: 12/22/23 Status: Ordered Quantity: 6.0 Unit: g Repeat number: 1 Problem List Condition Confirmation Course Effective Dates Status H ealth Status Informant Asthma with COPD Confirmed Active Cirrhosis of liver Confirmed Active Drug-induced constipation Confirmed Active Chronic GERD Confirmed Active Gastroesophageal reflux disease without esophagitis Confirmed Active History of splenectomy Confirmed Active History of vertigo Confirmed Active History of hepatitis C Confirmed Active Actinic keratitis Confirmed Active Unexplained night sweats Confirmed Active Opioid dependence on agonist therapy Confirmed Active Ventricular tachycardia Confirmed Active Vital Signs Most recent to oldest [Reference Range]: 1 2 3 Height 175 cm (09/24/24 3:49 AM) 175 cm (09/23/24 11:25 PM) 175 cm (09/23/24 4:47 PM) Weight 69.2 kg (09/24/24 3:49 AM) 62.3 kg (09/22/24 4:06 AM) 70.0 kg (09/21/24 6:56 PM) Oxygen Saturation [94-100 %] 97 % (09/24/24 3:49 AM) 96 % (09/23/24 11:25 PM) 95 % (09/23/24 4:47 PM) Pulse Rate [55-90 bpm] 77 bpm (09/24/24 10:23 AM) 81 bpm (09/24/24 3:49 AM) 82 bpm (09/23/24 11:25 PM) Body Mass Index [18.5-24.99 kg/m2] 22.6 kg/m2 (09/24/24 3:49 AM) 22.86 kg/m2 (09/21/24 6:43 PM) Blood Pressure [90-138/55-84 mm Hg] 120/71mm Hg (09/24/24 10:23 AM) 97/52mm Hg (09/24/24 3:49 AM) 99/57mm Hg (09/23/24 11:25 PM) Respiratory Rate [16-30 br/min] 18 br/min (09/24/24 7:46 AM) 18 br/min (09/24/24 3:49 AM) 189 br/min *H* (09/23/24 11:25 PM) Temperature [96.8-100.4 DegF] 98.1 DegF (09/24/24 3:49 AM) 98.0 DegF (09/23/24 11:25 PM) 98.0 DegF (09/23/24 4:47 PM) Mode of Delivery (Oxygen) Room air (09/24/24 3:49 AM) Room air (09/23/24 11:25 PM) Room air (09/23/24 4:47 PM) Blood pressure sites Arm, left (09/24/24 3:49 AM) Arm, left (09/23/24 11:25 PM) Arm, right (09/23/24 4:47 PM) Temperature Route Oral (09/24/24 3:49 AM) Oral (09/23/24 11:25 PM) Oral (09/23/24 4:47 PM) Dry Weight 69.5 kg (09/21/24 6:43 PM) Weight Obtained Via Bed scale (09/24/24 3:49 AM) Bed scale (09/22/24 4:06 AM) Social History Social History Type Response Smoking Status Never (less than 100 in lifetime) entered on: 01/20/21 Sex Sex Representation Male (finding) Note * Event Display: Hemodynamic Procedure Report Authored Date: * Milo Malik: MODIFY, PERFORM, SIGN, VERIFY, SIGN Event Display: Cardiac Rehab Note Authored Date: [id number] Patient: VIVEK SHUKLA Age: 64 years Sex: Male : 1960 Associated Diagnoses: None Author: Milo Malik Diagnosis Cardiac Rehab Diagnosis: STEMI/ ALCIRA to mid LAD 09/21/24. Pre-exercise Vitals Vital Signs: 84 HR. Vital Signs Comment: Reviewed in [facility]. Pre-exercise Physical Examination Neurologic: alert & oriented, oriented to (time, person, place). Cardiovascular: heart rate regular. Activity Ambulate: patient ambulating independently in room, patient denies any symptoms. . Assistive Devices Assistive Device: None. Patient Education Education: Patient alone, Written material included, Post procedure guidelines, Stent card reviewed. Education topic Teachback comprehension 75% Topic: Lipid management, Medication education, Role of exercise, Stress management, Home activity guidelines/limits, Infarct recovery guidelines. Reinforcement needed: Lipid management, Medication education, Role of exercise, Stress management, Home activity guidelines/limits, Infarct recovery guidelines. Recommendation and Plan Ambulate: 4-6 times/day. Encourage: All education with family present. Patient may benefit from: All education with family present. Outpatient follow up recommended: [facility]. Cardiac Rehab: Will sign off at this time. Recommendation comment: Provider notified of plan. * Jinny Blackman RN: PERFORM Event Display: Discharge/Transfer Note Hospital Authored Date: Nursing Discharge Note Entered On: 09/24/2024 11:44 EST Performed On: 09/24/2024 11:42 EST by Jinny Blackman RN Nursing Discharge Note 2 Discharge Time : 09/24/2024 11:30 EST Discharge Level of Care at Discharge : Home/[facility]/Foster Care Patient Left Unit Via : Ambulatory Patient Accompanied Off Unit with : Responsible adult DC Instructions Provided & Signed by Pt : Yes Patient Understands D/C Instructions : Yes Patient Instructions Discharge Signed : Yes Discharge Comments : tele removed, d/c education given Did Pt have Specialty Bed or Wound Vac : No Jinny Blackman RN - 09/24/2024 11:42 EST * Janice Herrera NP: PERFORM, MODIFY Event Display: Discharge/Transfer Note Hospital Authored Date: [id number] Patient: ??VIVEK SHUKLA ? Age:??64 Years?Sex:??Male?:??1960?? Patient Information Discharge Location: Primary Care Physician: Anaid Brock NP Admit Date/Time: 09/21/2024 17:37 Discharge Disposition Discharge Disposition: Home: No Services Discharge Diagnosis STEMI (ST elevation myocardial infarction) (I21.3) _ Discharge Medications Albuterol (Albuterol (Eqv-Proventil HFA) 90 mcg/inh inhalation aerosol)??2 puff(s) Inhalation Every6 hours Aspirin (aspirin 81 mg oral delayed release tablet)??81 Milligram By Mouth Daily for 30 Days Atorvastatin (atorvastatin 80 mg oral tablet)??80 Milligram By Mouth Daily at bedtime for 30 Days Budesonide-Formoterol (Symbicort 160mcg/4.5mcg Inhaler)??2 puff(s) Inhalation 2 times a day for 30 Days Clopidogrel (clopidogrel 75 mg oral tablet)??75 Milligram By Mouth Daily for 30 Days dapagliflozin (dapagliflozin 10 mg oral tablet)??10 Milligram By Mouth Daily for 30 Days Magnesium Oxide (magnesium oxide 400 mg oral capsule)??1 capsule 400 Milligram By Mouth Daily Methadone??See Instructions Liquid-22mg per day Metoprolol (metoprolol 25 mg oral tablet, extended release)??25 Milligram By Mouth Daily for 30 Days ? Quality Measures Chest Pain, AMI Quality Measures:?Beta-Gabriela Prescribed at Discharge:??Beta-Gabriela Prescibed ?Aspirin Prescribed at Discharge:??Aspirin Prescribed ?Statin Prescribed at Discharge:??Statin Prescribed ? Medications Started Aspirin Atorvastatin Plavix Dapagliflozin Medications Discontinued None Doses Changed Metoprolol increased to 25 XL daily Future Appointments 2024 12:45 PM EDT ?? With: Jackson TAMAYO, Kirill Where: [address] [id number]- Status: Pending Tuesday 9:40 AM EDT ?? With: Delmy CURRY, Anaid Schumacher Where: [facility] [address] [address]- Status: Pending Hospital Course Patient is a 64-year-old male with a past medical history of COPD, liver cirrhosis with history of hep C status post Harvoni with SVR, history of splenectomy, GERD, history of opiate use disorder in remission on long-term methadone therapy, latent TB, recently diagnosed with nonsustained VT who pres ented to the ED at [facility] with chest discomfort described as substernal sharp chest painwith radiation into his left shoulder/back and needed with diaphoresis. His pain persisted for approximately 45 minutes prompting him to present to the ED. While at [facility], his initial EKGshowed DONNA in leads II, 3, aVF, V3?V6 concerning for STEMI therefore he was transferred to [facility] for further workup. He did not receive 325 mg of aspirin and was loaded with Plavix as well as TNK. ?? On arrival to [facility] patient was hemodynamically stable. His chest pain was reported as mild 2 out of10 which improved with sublingual nitroglycerin. Troponins positive at [phone]. 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 His echo shows reduced EF 25 to 30% with dyskinesis of the basal inferolateral wall with hypokinesis of the mid?distal anteroseptal wall, mid?distal inferoseptal wall, mid/distal inferior wall, distal anterior wall, distal anterolateral wall, still inferolateral wall and apex. Plan is to initiate GDMT with follow-up with general cardiology. If there is no resolution in decompensated heart failure could consider an ICD as an outpatient. ?? Objective Assessment and Plan Assessment:??64 year old male patient with a past medical history of COPD, liver cirrhosis with history of hepatitis C s/p Harvoni with SVR, history of splenectomy, GERD, history of opiate use disorder in remission on long-term methadone therapy, latent tuberculosis, recently diagnosed NSVT who presented to the ED initially at [facility]??David with chest pain and was found to have STEMI s/p TNKwith improvement in ST elevations and chest pain. Transferred to [facility] for cath. PCI on 09/22 ALCIRA to LAD. Transferred out of [facility] to acute floor and has remained hemodynamically stable without chest pain. Echo 09/23 showing worsening EF 25-30% with multiple areas of hypokinesis.? ST Elevation Myocardial Infarction HFrEF H/o nonsustained ventricular tachycardia and PVCs ?? Plan: ???Aspirin 81 mg daily indefinitely ??? Plavix??75 mg daily??for 12 months ??? Increase??Toprol-XL to 25 mg daily ??? Start dapagliflozin 10 mg daily ??? Encouraged to??increase fluid intake ?Consider starting??SARAH/ARB as an outpatient??if blood pressure improves. ??Noted to be hypotensive??with systolic blood pressures in the low 90s??with intermittent reports of feeling dizzy. - Cardiac rehab - Continue magnesium oxide 400 mg daily ???patient to follow-up??general cardiology??at [address] per request. ??Previously saw Dr. Pineda but does not wish to travel to that location any further. ?? Right iliac artery calcification and ulcerated plaques:??Will need outpatient vascular surgery followup ?? COPD:??Continue home LABA/ICS inhaler and albuterol rescue inhaler ?? GERD:??Continue home PPI ?? Opiate use disorder in remission:??Continue home methadone 16 mg daily, confirmed with [facility]. ??Letter given to patient to provide to his methadone clinic.?? Goal ?? Liver cirrhosis with history of hepatitis C s/p Anders with SVR, history of splenectomy:??Continueoutpatient followup with GI Latent tuberculosis:??Continue outpatient followup with ID and TB clinic Pre-Diabetes:??A1c while in [facility] is 5.9, will encourage patient to follow up with PCP for further management ? Vital Signs?? Temperature: 98.1 DegF (09/24/24 03:49:00) Temperature Route: Oral (09/24/24 03:49:00) Pulse Rate: 81 bpm (09/24/24 03:49:00) Respiratory Rate: 18 br/min (09/24/24 07:46:00) Systolic Blood Pressure: 97 mm Hg (09/24/24 03:49:00) Diastolic Blood Pressure:??52 mm Hg??Low (09/24/24 03:49:00) Blood pressure sites: Arm, left (09/24/24 03:49:00) Mean Arterial Pressure: 67 mm Hg (09/24/24 03:49:00) Pulse Pressure: 45 mm Hg (09/24/24 03:49:00) Oxygen Saturation: 97 % (09/24/24 03:49:00) Mode of Delivery (Oxygen): Room air (09/24/24 03:49:00) Early Warning Score: 1 (09/24/24 09:55:52) ? . Physical Exam General:??Alert, in no acute cardiopulmonary distress. Mental Status:??Oriented to person, place and time. Normal affect. Head:??Normocephalic. Eyes:??No xanthomas or scleral icterus. Extraocular muscles intact. Respiratory:??Clear to auscultation and percussion. No wheezing, rales or rhonchi. Cardiovascular:??Heart sounds normal. No thrills. Regular rate and rhythm, no murmurs, rubs or gallops. No JVD appreciated Extremities:??+2 peripheral pulses bilaterally. No edema noted. Gastrointestinal:??Abdomen soft, non-tender, non-distended. Normal bowel sounds. No pulsatile mass.No hepatosplenomegaly. Neurologic:??Cranial nerves II-XII grossly intact. Skin:??No rashes or lesions. No petechiae or purpura. No edema. Musculoskeletal:??No cyanosis or clubbing. No gross deformities. Normal range of motion. Patient Education Titles Web[employer]ite Patient Education - Dapagliflozin?? [employer] Patient Education - Clopidogrel?? [employer] Patient Education - Atorvastatin?? [employer] Patient Education - Aspirin?? [employer] Patient Education - Heart Attack: Having Sex Again?? [employer] Patient Education - Symptoms of a Heart Attack?? [employer] Patient Education - Eating Heart-Healthy Foods?? [employer] Patient Education - Cardiac Rehabilitation?? Follow-Up Appointments Added Follow Up ?Time Frame ?Comments [facility]?10/11/2024 10:30?Phase 2 Cardiac Rehab Anaid Brock Results Discharge Labs BLOOD COUNT & DIFF WBC 9.9 k/mm3 ()?? 09/24/2024 08:57 RBC 5.22 m/mm3 ()?? 09/24/2024 08:57 Hgb 15.2 Gm/dL ()?? 09/24/2024 08:57 Hct 45.7 % ()?? 09/24/2024 08:57 MCV 87.5 femtoliters ()?? 09/24/2024 08:57 MCH 29.1 pg ()?? 09/24/2024 08:57 MCHC 33.3 Gm/dL ()?? 09/24/2024 08:57 Platelet Count 369 k/mm3 ()?? 09/24/2024 08:57 RDW-SD 44.2 femtoliters ()?? 09/24/2024 08:57 MPV 9.4 femtoliters ()?? 09/24/2024 08:57 Nucleated RBC (Automated) 0.0 #/100 WBC'S ()?? 09/24/2024 08:57 Abs. NRBC 0.0 k/mm3 ()?? 09/24/2024 08:57 ?? CARDIAC High Sensitivity Troponin (HSTnT) 639 ng/L (Critical)?? 09/23/2024 08:10 ? CHEM GENERAL Sodium 138 mmol/L ()?? 09/24/2024 08:57 Potassium 4.6 mmol/L ()?? 09/24/2024 08:57 Chloride 103 mmol/L ()?? 09/24/2024 08:57 Bicarbonate Level 21 mmol/L (Low)?? 09/24/2024 08:57 Anion Gap 14 mmol/L ()?? 09/24/2024 08:57 Glucose Level 109 mg/dL (High)?? 09/24/2024 08:57 Hemoglobin A1C (Monitoring) 5.9 % (High)?? 09/22/2024 02:47 BUN 21 mg/dL ()?? 09/24/2024 08:57 Creatinine-Blood 0.92 mg/dL ()?? 09/24/2024 08:57 Estimated GFR Creatinine 92 ML/MIN/1.73 M2 ()?? 09/24/2024 08:57 Calcium 9.2 mg/dL ()?? 09/24/2024 08:57 Magnesium 2.0 mg/dL ()?? 09/22/2024 02:47 Protein, Total 6.3 Gm/dL ()?? 09/22/2024 02:47 Albumin 3.9 Gm/dL ()?? 09/22/2024 02:47 AG Ratio 1.6 ()?? 09/22/2024 02:47 Alkaline Phosphatase 78 units/L ()?? 09/22/2024 02:47 AST (SGOT) 80 units/L (High)?? 09/22/2024 02:47 ALT (SGPT) 22 units/L ()?? 09/22/2024 02:47 Bilirubin, Total 0.4 mg/dL ()?? 09/22/2024 02:47 ? COAG APTT 51.6 seconds (High)?? 09/22/2024 10:17 POC ACT-LR 215.0 seconds ()?? 09/22/2024 14:29 ?? ENDOCRINE/TUMOR MARKER TSH 1.70 uIU/mL ()?? 09/22/2024 02:47 ? LIPID STUDIES Cholesterol 152 mg/dL ()?? 09/22/2024 02:47 Triglycerides 144 mg/dL ()?? 09/22/2024 02:47 HDL Cholesterol 39 mg/dL (Low)?? 09/22/2024 02:47 LDL Cholesterol 84 mg/dL ()?? 09/22/2024 02:47 Non HDL Cholesterol 113 mg/dL ()?? 09/22/2024 02:47 ? MISC. CHEMISTRY Hold Webber Top SPECIMEN DISCARDED AFTER 1 WEEK ()?? 09/21/2024 18:47 ? URINE OTHER Est Creatinine Clearance 77.64 mL/min ()?? 09/24/2024 09:44 ? VIROLOGY COVID-19 PCR Specimen Source NASAL ()?? 09/21/2024 18:55 COVID-19 PCR Result NEGATIVE ()?? 09/21/2024 18:55 ? Procedure ?Cardiac Cath Procedure??09/22/2024 14:16 by Serge Tai MD ?Conclusions Diagnostic Summary 64-year-old gentleman who presented to [facility] with chest pain and was noted to have anterior and inferior ST elevations. He underwent thrombolytic therapy and was transferred to [facility] for further assessment. He is here for diagnostic cardiac catheterization. Hemodynamics: Low systemic pressures. Normal LVEDP. There is no gradient across aortic valve on pullback. Coronary anatomy: Right dominant circulation. No significantdisease in the right coronary artery and circumflex. 70% proximal to mid LAD stenosis-culprit for presentation. Diagnostic Recommendations PCI to LAD. Interventional Summary Successful intravascular u ltrasound-guided PCI to proximal to mid LAD with 3.5 mm x 24 mm Synergy drug- eluting stent. Interventional Recommendations Continue aspirin 81 mg indefinitely. Continue clopidogrel therapy for at least 12 month(s) post-PCI. Aggressive secondary risk factor modification according to ATP III guidelines. Referral to cardiac rehabilitation. Follow-up in the office in 2 weeks. [facility] Diagnostic Recommendations: PCI without planned CABG. Complications:None. Signatures ?? Cardiac Cath Procedure ? Image ?Echo Complete-Doppler, Colorflow, M-Mode??09/23/2024 09:31 by Marvin Carolina MD ?Summary Due to suboptimal visual quality, IV contrast was used to enhance this study.The left ventricular ejection fraction is 25-30 % (Biplane EF 26%) There is dyskinesis of the basalinferolateral wall with hypokinesis of the mid-distal anteroseptal wall, mid-distal inferoseptal wall, mid-distal inferior wall, distal anterior wall, distal anterolateral wall, distal inferolateral wall and apex. Normal right ventricular size and function. The left atrium is mildly dilated. No significant valvular disease. Comparison Comparison is made to the study of July 23, 2024. The leftventricular systolic function has decreased with new wall motion abnormalities. Signature ?? _36 minutes spent on discharge * Chely Ruvalcaba RN: PERFORM Event Display: Patient Education/Instruction Authored Date: [id number] Inpatient Adult Discharge Instructions. [address] [address] Name: VIVEK SHUKLA : 1960?? Visit: 09/21/2024 17:37?? Current Date: 09/24/2024 10:49 ?? Account: [id number]?? Inpatient Adult Discharge Instructions We would like to thank you for allowing us to assist you with your healthcare needs. The following includes patient education materials and information regarding your injury/illness. Our entire staffstrives to provide an excellent experience for our patients and their families. PLEASE ENSURE YOU FOLLOW-UP PER THE INSTRUCTIONS BELOW! ?? YOUR OPINION IS IMPORTANT TO US! Please complete the survey you may receive by mail or email. Your feedback will be used to make improvements to the healthcare experiences of our patients and their families. Surveys are administered by [employer] ?? If further treatment with your primary care physician or another doctor is recommended, it is important for you to keep the appointment. Call your primary care physician or return to the Emergency Department immediately if your condition worsens, fails to improve, or new symptoms develop. If you need to find a doctor, you can call [email or web address] for a referral at [phone] or toll free at [phone]) or log in to [email or web address] ?? [facility], in keeping with [facility] guidance, no longer requires face masks for staff, patientsor visitors in most situations. Similiar to time spent indoors at other locations, there is the chance that you were exposed to repiratory viruses during your time with us (such as flu or COVID-19). If you develop symptoms concerning for a viral respiratory infection, please seek testing (and treatment if indicated) from your medical provider or home test kit. ?? You can view and manage your care through the patient portal or by using a health care dariusz of your choosing. [email or web address] is a website that allows you to securely view your medical information including your hospital discharge summary, office visit summaries, medications and follow-up visits. You can also request appointments, renew medications, and request access to your medical information using a health care dariusz of your choosing, or just ask a question. You are entitled to know the individuals who participated in your treatment. This information is available within your medical record and will be provided upon your request. You can enroll at [email or web address] or register d uring your next office visit. You have been discharged from [facility], Patient Care Unit: M5??. If you have any questions regarding these instructions, including results of studies pending, afteryou leave, please call us and we will be happy to assist you 14/02. [facility] Your Care Team Attending Physician Denia HARPER, Jareth Schumacher?? Consulting Providers Jareth Loza MD?? Discharging Providers Janice Herrera NP Your Diagnosis STEMI (ST elevation myocardial infarction) Tests Performed Below is a partial list of the tests performed during your hospitalization. You may have had other tests and procedures not included in this list. Please discuss all test results with your provider. Basic Metabolic Panel CBC Comprehensive Metabolic Panel COVID-19 (2019 Novel Coronavirus) PCR HEMOGLOBIN A1C Hemoglobin A1c, (Diagnostic)?-- Results Pending -- High Sensitivity Troponin T HOLD WEBBER TUBE Lipid Panel Magnesium Level POC Hemochron ACT-LR Troponin T, High Sensitivity TSH with T4 Reflex (Adults Only) Add On Lab Order?? Basic Metabolic Panel?? CBC?? COVID-19 (2019 Novel Coronavirus) PCR?? Comprehensive Metabolic Panel?? Hemoglobin A1C (Monitoring) (HEMOGLOBIN A1C)?? High??Sensitivity??Troponin T (Troponin T, High Sensitivity)?? Hold Webber Top Tube (HOLD WEBBER TUBE)?? Lipid Panel?? Magnesium Level (MAGNESIUM)?? POC ACT-LR (POC Hemochron ACT-LR)?? PTT?? TSH with T4 Reflex (Adults Only)?? Primary Care Provider Delmy CURRY, Anaid Schumacher? Advance Directive Health Care Proxy on File Yes - Health Care Proxy Discharge Vitals Temperature: 98.1 DegF Height: 175 cm Pulse Rate: 77 bpm Weight: 69.2 kg Respiratory Rate: 18 br/min Body Mass Index: 22.6 kg/m2 Systolic Blood Pressure: 120 mm Hg Body surface area: 1.83 Diastolic Blood Pressure: 71 mm Hg ?? Oxygen Saturation: 97 % ?? Studies Pending All studies ordered during this hospital stay have been completed unless listed below. Please discuss all pending results with your provider listed above in these instructions. ?? Add On Lab Order?? Hemoglobin A1C (Monitoring) (Hemoglobin A1c, (Diagnostic))?? PTT?? What to do next Instructions From Your Doctor ?? Orders?? print out patient's methadone letter and give prior to discharge, ??09/24/24 10:21:00 EST?? Scheduled Follow-Up Appointments 2024 12:45 PM EDT ?? With: Kirill Bravo Where: [facility] [address] [place] [phone]- Status: PendTuesday 9:40 AM EDT ?? With: Delmy CURRY, Anaid Schumacher Where: [address] [phone]- Status: Pending You Need to Schedule the Following Appointments Follow Up with??[facility] When:??10/11/2024 10:30 AM EDT Why: Phase 2 Cardiac Rehab Where: [address] [place] [phone] Follow Up with??Anaid Brock When:??In 0 days Discharge Medications VIVEK SHUKLA :1960 Visit Date:09/21/2024 Medications: Please continue your medications until treatment is completed or stopped by your provider. Medications not listed below should be discontinued. Discuss any questions related to medications with your provider. What How Much When Instructions Next Dose New Aspirin (aspirin 81 mg oral delayed release tablet) 81 Milligram Oral Daily Duration: 30 Days Refills: 2 Pickup at [place] [address] tomorrow AM New Atorvastatin (atorvastatin 80 mg oral tablet) 80 Milligram Oral Daily at Bedtime Duration: 30 Days Refills: 2 Pickup at [place] [address] tonight New Clopidogrel (clopidogrel 75 mg oral tablet) 75 Milligram Oral Daily Duration: 30 Days Refills: 2 Pickup at [place] [address] tomorrow AM New dapagliflozin (dapagliflozin 10 mg oral tablet) 10 Milligram Oral Daily Duration: 30 Days Refills: 2 Pickup at [place] [address] tomorrow AM Changed Metoprolol (metoprolol 25 mg oral tablet, extended release) 25 Milligram Oral Daily Duration: 30 Days Pickup at [place] [address] tomorrow AM Unchanged Albuterol (Albuterol (Eqv-Proventil HFA) 90 mcg/ inh inhalation aerosol) 2 puff(s) Inhalation Every 6 hours resume as needed Unchanged Budesonide-Formoterol (Symbicort 160mcg/ 4.5mcg Inhaler) 2 puff(s) Inhalation Twice a day Duration: 30 Days tonight Unchanged Magnesium Oxide (magnesium oxide 400 mg oral capsule) 1 capsule Oral Daily tomorrow AM Unchanged Methadone See instructions Liquid-22mg per day ?? resume schedule Pharmacy Information [facility]: [address] [place], [place] [id number] [phone] Prescription Given During Visit Aspirin (aspirin 81 mg oral delayed release tablet) - 81 mg, By Mouth, Daily, # 30 tablet, 2 Refills, [facility], [address] [place] [phone] [phone]?? Atorvastatin (atorvastatin 80 mg oral tablet) - 80 mg, By Mouth, Daily at bedtime, # 30 tablet, 2 Refills, [facility], [address] [place] [phone]?? Clopidogrel (clopidogrel 75 mg oral tablet) - 75 mg, By Mouth, Daily, # 30 tablet, 2 Refills, [facility], [address] [place] [phone]?? Metoprolol (metoprolol 25 mg oral tablet, extended release) - 25 mg, By Mouth, Daily, # 30 tablet, 2 Refills, [facility], [address] [place] [phone]?? dapagliflozin (dapagliflozin 10 mg oral tablet) - 10 mg, By Mouth, Daily, # 30 tablet, 2 Refills, [facility], [address] [place] [phone]?? Laboratory Results Below is a partial list of the most recent Laboratory test results done prior to this discharge. You may have had other tests and procedures not included in this list. Please discuss all test resultswith your provider. Est Creatinine Clearance - 77.64 mL/min (09/24/2024) Basic Metabolic Panel (09/24/2024) ???Sodium - 138 mmol/L???Potassium - 4.6 mmol/L???Chloride - 103 mmol/L???Bicarbonate Level - 21 mmol/L???Anion Gap - 14 mmol/L???Glucose Level - 109 mg/dL???BUN - 21 mg/dL???Creatinine-Blood - 0.92 mg/dL???Estimated GFR Creatinine - 92 ML/MIN/1.73 M2???Calcium - 9.2 mg/dL CBC (09/24/2024) ???WBC - 9.9 k/mm3???RBC - 5.22 m/mm3???Hgb - 15.2 Gm/dL???Hct - 45.7 %???MCV - 87.5 femtoliters???MCH - 29.1 pg???MCHC - 33.3 Gm/dL???Platelet Count - 369 k/mm3???RDW-SD - 44.2 femtoliters???MPV - 9.4 femtoliters???Nucleated RBC (Automated) - 0.0 #/100 WBC'S???Abs. NRBC - 0.0 k/mm3 Comprehensive Metabolic Panel (09/22/2024) ???Sodium - 141 mmol/L???Potassium - 3.6 mmol/L???Chloride - 107 mmol/L???Bicarbonate Level - 21 mmol/L???Anion Gap - 13 mmol/L???Glucose Level - 106 mg/dL???BUN - 19 mg/dL???Creatinine-Blood - 0.79 mg/dL???Estimated GFR Creatinine - 98 ML/MIN/1.73 M2???Calcium - 8.5 mg/dL???Protein, Total - 6.3 Gm/ dL???Albumin - 3.9 Gm/dL???AG Ratio - 1.6???Alkaline Phosphatase - 78 units/L???AST (SGOT) - 80 units/L???ALT (SGPT) - 22 units/L???Bilirubin, Total - 0.4 mg/dL COVID-19 (2019 Novel Coronavirus) PCR (09/21/2024) ???COVID-19 PCR Specimen Source - NASAL???COVID-19 PCR Result - NEGATIVE HEMOGLOBIN A1C (09/22/2024) ???Hemoglobin A1C (Monitoring) - 5.9 % High Sensitivity Troponin T (09/21/2024) ???High Sensitivity Troponin (HSTnT) - 472 ng/L HOLD WEBBER TUBE (09/21/2024) ???Hold Webber Top - SPECIMEN DISCARDED AFTER 1 WEEK Lipid Panel (09/22/2024) ???Cholesterol - 152 mg/dL???Triglycerides - 144 mg/dL???HDL Cholesterol - 39 mg/dL???LDL Cholesterol - 84 mg/dL???Non HDL Cholesterol - 113 mg/dL Magnesium Level (09/22/2024) ???Magnesium - 2.0 mg/dL POC Hemochron ACT-LR (09/22/2024) ???POC ACT-LR - 215.0 seconds Troponin T, High Sensitivity (09/23/2024) ???High Sensitivity Troponin (HSTnT) - 639 ng/L TSH with T4 Reflex (Adults Only) (09/22/2024) ???TSH - 1.70 uIU/mL You will be contacted within 72 hours with your results. Allergies (NKA means No Known Allergies) Cats Dust Mold No Known Medication Allergies Problems Active Problems??(12) Actinic keratitis?? Asthma with COPD?? Chronic GERD?? Cirrhosis of liver?? Drug-induced constipation?? Gastroesophageal reflux disease without esophagitis?? History of hepatitis C?? History of splenectomy?? History of vertigo?? Opioid dependence on agonist therapy?? Unexplained night sweats?? Ventricular tachycardia?? Education Materials Below is the list of Educational Leaflet Providered with your Discharge Instructions. [employer] Patient Education - Surgery Radial Cath Approach Discharge Instructions?? [employer] Patient Education - Dapagliflozin?? [employer] Patient Education - Clopidogrel?? [employer] Patient Education - Atorvastatin?? [employer] Patient Education - Aspirin?? [employer] Patient Education - Heart Attack: Having Sex Again?? [employer] Patient Education - Symptoms of a Heart Attack?? [employer] Patient Education - Eating Heart-Healthy Foods?? [employer] Patient Education - Cardiac Rehabilitation?? Valuables and Belongings I fully understand and agree that [facility] accepts no responsibility for all my personal property including clothing, toilet articles, radios, jewelry, dentures, hearing aids, rings, money, or any other property that is in my possession or is brought to me after admission. I understand certain valuables may be placed in a hospital safe for a short period of time. I understand that the hospital is not liable for loss or damage due to accident, fire, or other natural occurrence while said property is in the safe. I accept full responsibility for any personal property that I keep with me, and will not hold the hospital responsible in case of loss or disappearance. I acknowledge that i have been encouraged to send valuables and belongings home. ?? Review of Valuable and Belonging List: With patient Date for Pt to Sign Valuables/Belongings: 09/22/24 18:26:00 ?? Other Discharge Information ? Pulmonary Rehab Status?? Pulmonary Rehab Discharge Status?? Respiratory Rate: 18 br/min ? Cardiac Rehab Assessment?? Cardiac Rehab Inpatient Assessment?? Comments-Education: post procedure and home activty guidelines, heart attack handbook Comments-Exercise Activity: increase activty as tolerated Comments-Nutrition: per RD Comments-Stress Management: healthy coping techniques Comments-Lipids: diet, exercise, medications per MD Comments-Other plan of care: refer to phase 2 cardiac rehab Patient attending Phase II: Yes Common Emergency Awareness Tips IS IT A STROKE? Act FAST and Check for these signs: FACE Does the face look uneven? ARM Does one arm drift down? SPEECH Does their speech sound strange? TIME Call at any sign of stroke ?? Heart Attack Signs Chest discomfort: Most heart attacks involve discomfort in the center of the chest and lasts more than a few minutes, or goes away and comes back. It can feel like uncomfortable pressure, squeezing, fullness or pain. Discomfort in upper body: Symptoms can include pain or discomfort in one or both arms, back, neck, jaw or stomach. Shortness of breath: With or without discomfort. Other signs: Breaking out in a cold sweat, nausea, or lightheaded. Remember, MINUTES DO MATTER. If you experience any of these heart attack warning signs, call to get immediate medical attention! ?? Smoking can increase your chances of developing chronic health problems and can cause harmful effects to other family members in your house. If you smoke, you are strongly encouraged to quit. Please call [facility] [employer] at [phone] or [phone] ([phone]) or log in to [email or web address] for referrals to smoking cessation programs. ?? 427 Suicide & Crisis Lifeline is available 14/02 if you or someone you know needs to find a reason to keep living. By calling 387 you'll be connected to a skilled, trained counselor at a crisis center in your area. INPATIENT DISCHARGE INSTRUCTIONS SIGNATURE PAGE VIVEK SHUKLAN:[id number] Location:[facility] Registration Date and Time:09/21/2024 17:37 EST Primary Care Physician: Anaid Brock NP, Attending Physician: Denia HARPER, Jareth Schumacher, I VIVEK SHUKLA, have received the above patient education materials/instructions and have verbalized understanding. If ambulance or transport services are being used I further acknowledge being givena choice of service. ?? If you need to contact me, please call me at this number: . Patient/Custodial Maintenance Worker Name: Patient/Custodial Maintenance Worker Signature: Relationship to Patient: Witness Name/Signature: Date: * Milo Malik: SIGN, PERFORM, SIGN, VERIFY Event Display: Patient Education Handout Authored Date: [id number] * Chely Ruvalcaba RN: PERFORM Event Display: Patient Education Leaflets Authored Date: [id number] Surgery Radial Cath Approach Discharge Instructions ?? 278 Radial Cath Approach Discharge Instructions ?? Activity Take it easy the rest of the day. Limit your activity on the affected side.?? Act as if your arm is broken for 24 hours. No lifting with affected arm for 24 hours. No pushing or pulling with the affected arm. Do not reach or lift with the affected arm. Do not place excessive pressure on the wrist. ?? Precautions Due to intravenous sedation: It is recommended that someone stay with you for the first night after your procedure. Do not drive or operate hazardous machinery for 24 hours. Do not make legal decisions for 24 hours. Avoid alcohol for 24 hours. Unless directed otherwise, keep yourself hydrated. ?? Dressing/Incision Care You may remove the dressing 24 hours after your procedure. Replace with band aid for an additional 24 hours. You may shower and cleanse the site with soap & water then pat dry. Avoid submersion of site in water x 5 days. Cover the with a clean band aid daily until site is healed. If the band aid becomes soiled, replacewith a clean new one. Do not apply any ointments, lotions, gels or powders to the puncture site. ?? When to contact your doctor If any of the following signs of infection occur: Fever greater than 100 degrees F Increased pain Drainage, redness or warmth at puncture site Tingling of the fingers and hand that last longer than 3 days Slight bubble of blood or bleeding from site: apply manual pressure and notify your doctor ?? Emergency situations: Bleeding from the site that will not stop: apply manual pressure and notify your doctor Profuse bleeding streaming from the puncture site: Apply manual pressure and notify your doctor immediately If your hand becomes bluish, cold to the touch, or painful, notify your doctor immediately or go toEmergency Department. For these emergent situations: If unable to contact your physician, call 911. ?? * Janice Herrera NP: PERFORM Event Display: Patient Education Leaflets Authored Date: [id number] Dapagliflozin ?? [id number] Dapagliflozin Brand Name(s): Farxiga??, Qtern?? (as a combination product containing Dapagliflozin, Saxagliptin),Qternmet?? XR (as a combination product containing Dapagliflozin, Metformin, Saxagliptin), Xigduo??XR (as a combination product containing Dapagliflozin, Metformin) ?? WHY is this medicine prescribed? Dapagliflozin is used along with diet and exercise, and sometimes with other medications, to lower blood sugar levels in adults and children 10 years of age and older with type 2 diabetes (condition in which blood sugar is too high because the body does not produce or use insulin normally). It is also used to reduce the risk of needing to be hospitalized for heart failure in adults who have type 2 diabetes along with heart and blood vessel disease or who have multiple risk factors for developing heart and blood vessel disease. Dapagliflozin is also used in adults with heart failure to reduce the risk of needing to be hospitalized and due to heart and blood vessel disease. It is also used to reduce the risk of worsening kidney disease, the need to be hospitalized for heart failure, and the risk of due to heart disease in adults with kidney disease. Dapagliflozin is in a classof medications called sodium-glucose co-transporter 2 (SGLT2) inhibitors. It lowers blood sugar by c ausing the kidneys to get rid of more glucose in the urine. Dapagliflozin is not used to treat type1 diabetes (condition in which the body does not produce insulin and, therefore, cannot control theamount of sugar in the blood) or diabetic ketoacidosis (a serious condition that may develop if high blood sugar is not treated). Over time, people who have diabetes and high blood sugar can develop serious or life-threatening complications, including heart disease, stroke, kidney problems, nerve damage, and eye problems. Taking dapagliflozin, making lifestyle changes (e.g., diet, exercise, quitting smoking), and regularly checking your blood sugar may help to manage your diabetes and improve your health. This therapy may also decrease your chances of having a heart attack, stroke, or other diabetes-related complications such as kidney failure, nerve damage (numb, cold legs or feet; decreased sexual ability in men and women), eye problems, including changes or loss of vision, or gum disease. Your doctor and other healt hcare providers will talk to you about the best way to manage your diabetes. HOW should this medicine be used? Dapagliflozin comes as a tablet to take by mouth. It is taken usually with or without food once a day. Take dapagliflozin at around the same time every day. Follow the directions on your prescriptionlabel carefully, and ask your doctor or pharmacist to explain any part you do not understand. Take dapagliflozin exactly as directed. Do not take more or less of it or take it more often than prescribed by your doctor. Your doctor may start you on a low dose of dapagliflozin and increase your dose if needed. Dapagliflozin helps to control your condition, but does not cure it. Continue to take dapagliflozineven if you feel well. Do not stop taking dapagliflozin without talking to your doctor. Your doctor or pharmacist will give you the accounts receivable collector's patient information sheet (Medication Guide) when you begin treatment with dapagliflozin and each time you refill your prescription. Read the information carefully and ask your doctor or pharmacist if you have any questions. You can also visit the Food and Drug Administration (FDA) website (https://www.fda.gov/Drugs/DrugSafety/yyk801687.htm) to obtain the Medication Guide. Are there OTHER USES for this medicine? This medication may be prescribed for other uses; ask your doctor or pharmacist for more information. What SPECIAL PRECAUTIONS should I follow? Before taking dapagliflozin, ??? tell your doctor and pharmacist if you are allergic to dapagliflozin, any other medications, orany of the ingredients in dapagliflozin tablets. Ask your pharmacist or check the Medication Guide for a list of the ingredients. ??? tell your doctor and pharmacist what other prescription and nonprescription medications, vitamins, nutritional supplements, and herbal products you are taking or plan to take. Your doctor may need to change the doses of your medications or monitor you carefully forside effects. ??? tell your doctor if you regularly drink alcohol or sometimes drink large amounts of alcohol in a short time (binge drinking), if you are on a low sodium diet, or if you have an infection. Also tell your doctor if you have or have ever had heart failure, pancreatic disease including pancreatitis (swelling of the pancreas) or have had surgery on your pancreas, urinary tract infections or problems urinating, low blood pressure, yeast infections in the genital area, or kidney or liver disease. If you are male, tell your doctor if you have never been circumcised. Also, tell your doctor if you are eating or drinking less due to illness, surgery or a change in your diet; if you are following a ketogenic diet (a high fat, low carbohydrate diet); or have recently had diarrhea, vomiting, been in the sun too long, or have been sweating a lot, which may cause dehydration (loss of a large amount of body fluids). ??? tell your doctor if you are , plan to become , or are . Do not breastfeed while you are taking dapagliflozin. If you become while taking dapagliflozin, call your doctor. ??? if you are having surgery, including dental surgery,tell the doctor or dentist that you are taking dapagliflozin. Your doctor will probably tell you tostop taking dapagliflozin at least 3 days before a surgery. ??? alcohol may cause a change in bloodsugar. Ask your doctor about the safe use of alcoholic beverages while you are taking dapagliflozin. ??? you should know that dapagliflozin may cause dizziness, lightheadedness, and fainting when youget up too quickly from a lying position. If you have this problem, call your doctor. This problem is more common when you first start taking dapagliflozin. To avoid this problem, get out of bed slowly, resting your feet on the floor for a few minutes before standing up. ??? ask your doctor what todo if you get sick, develop an infection or fever, experience unusual stress, or are injured. These conditions can affect your blood sugar and the amount of dapagliflozin you may need. What SPECIAL DIETARY instructions should I follow? Be sure to follow all exercise and dietary recommendations made by your doctor or dietitian. It is important to eat a healthful diet and exercise regularly. Follow your doctor's instructions about drinking enough fluids throughout the day while you are on this medication. What should I do IF I FORGET to take a dose? Take the missed dose as soon as you remember it. However, if it is almost time for the next dose, skip the missed dose and continue your regular dosing schedule. Do not take a double dose to make up for a missed one. What SIDE EFFECTS can this medicine cause? Dapagliflozin may cause side effects. Tell your doctor if any of these symptoms are severe or do not go away: ??? urinating a lot, including at night ??? stuffy or runny nose ??? sore throat ??? leg or arm pain ??? constipation Some side effects can be serious. If you experience any of these symptoms, call your doctor immediately: ??? frequent, urgent, burning, or painful urination ??? urine that is cloudy, red, pink, or brown ??? strong smelling urine ??? decrease in amount of urine ??? fever, back pain, nausea or vomiting ??? dry mouth, dark urine, decreased sweating, dry skin, and other signs of dehydration ??? pelvic or rectal pain ??? (in women) vaginal odor, white or yellowish vaginal discharge (may be lumpy or look like cottage cheese), or vaginal itching ??? (in men) redness, itching, or swelling of the penis; rash on the penis; foul smelling discharge from the penis; or pain in the skin around the penis ??? feeling tired, weak, or uncomfortable; along with a fever and pain, tenderness, redness, and swelling of the genitals or the area between the genitals and the rectum If you experience any of the following symptoms, stop taking dapagliflozin and call your doctor immediately or get emergency medical treatment: ??? rash ??? hives ??? itching ??? difficulty breathing or swallowing ??? swelling of the face, throat, tongue, lips, mouth, or eyes ??? hoarseness If you experience any of the following symptoms of ketoacidosis, stop taking dapagliflozin and callyour doctor immediately or get emergency medical treatment. If possible, check for ketones in your urine if you have these symptoms, even if your blood sugar is less than 250 mg/dL: ??? nausea ??? vomiting ??? stomach-area pain ??? tiredness ??? difficulty breathing Dapagliflozin can cause dehydration. It is important that you drink plenty of water while taking dapagliflozin. Talk to your doctor or pharmacist about the right amount of water to drink to prevent dehydration while taking dapagliflozin. Dapagliflozin may cause other side effects. Call your doctor if you have any unusual problems whiletaking this medication. If you experience a serious side effect, you or your doctor may send a report to the Food and Drug Administration's (FDA) MedWatch Adverse Event Reporting program online (https://www.fda.gov/Safety/MedWatch) or by phone ( ). What should I know about STORAGE and DISPOSAL of this medication? Keep this medication in the container it came in, tightly closed, and out of reach of children. Store it at room temperature and away from excess heat and moisture (not in the bathroom). It is important to keep all medication out of sight and reach of children as many containers (such as weekly pill minders and those for eye drops, creams, patches, and inhalers) are not child-resistant and young children can open them easily. To protect young children from poisoning, always lock safety caps and immediately place the medication in a safe location ??? one that is up and away and out of their sight and reach. https://www.[employer].org Unneeded medications should be disposed of in special ways to ensure that pets, children, and otherpeople cannot consume them. However, you should not flush this medication down the toilet. Instead,the best way to dispose of your medication is through a medicine take-back program. Talk to your pharmacist or contact your local garbage/recycling department to learn about take-back programs in your community. See the FDA's Safe Disposal of Medicines website (https://goo.gl/c4Rm4p) for more information if you do not have access to a take-back program. What should I do in case of OVERDOSE? In case of overdose, call the poison control helpline at . Information is also available online at https://www.poisonhelp.org/help. If the victim has collapsed, had a seizure, has trouble breathing, or can't be awakened, immediately call emergency services at [phone]. What OTHER INFORMATION should I know? Keep all appointments with your doctor and the laboratory. Your doctor will probably order certain laboratory test before and during your treatment to check your body's response to dapagliflozin. Your blood sugar levels should be checked regularly to determine your response to dapagliflozin. Your doctor will order other lab tests, including glycosylated hemoglobin (HbA1c), to check your response to dapagliflozin. Your doctor will also tell you how to check your response to this medication by measuring your blood sugar levels at home. Follow these instructions carefully. Before having any laboratory test, tell your doctor and the laboratory personnel that you are taking dapagliflozin. Because of the way this medication works, your urine may test positive for glucose. You should always wear a diabetic identification bracelet to be sure you get proper treatment in anemergency. Do not let anyone else take your medication. Ask your pharmacist any questions you have about refilling your prescription. It is important for you to keep a written list of all of the prescription and nonprescription (bafc-edp-vdislhj) medicines you are taking, as well as any products such as vitamins, minerals, or otherdietary supplements. You should bring this list with you each time you visit a doctor or if you areadmitted to a hospital. It is also important information to carry with you in case of emergencies. This report on medications is for your information only, and is not considered individual patient advice. Because of the changing nature of drug information, please consult your physician or pharmacist about specific clinical use. The [employer] represents that the information provided hereunder was formulated with a reasonable standard of care, and in conformity with professional standards in the field. The [employer] makes no representations or warranties, express or implied, including, but not limited to, any implied warranty of merchantability and/or fitness for a particular purpose, with respect to such information and specifically disclaims all such warranties. Users are advised that decisions regarding drug therapy are complex medical decisions requiring the independent, informed decision of an appropriate health home care giver, and the information is provided for informational purposes only. The entire monograph for a drug should be reviewed for a thorough understanding of the drug's actions, uses and side effects. The [employer] does not endorse or recommend the use of any drug.The information is not a substitute for medical care. AHFS?? Patient Medication Information???. ?? Copyright, 2023. The [employer]??, [address], [address], [place], [place]. All Rights Reserved. Duplication for commercial use must be authorized by [facility]. Selected Revisions: April 13, 2024. AHFS?? Patient Medication Information???. ?? Copyright, 2024 ?? * Janice Herrera NP: PERFORM Event Display: Patient Education Leaflets Authored Date: [id number] Clopidogrel ?? [id number] Clopidogrel Brand Name(s): Plavix??; also available generically ?? IMPORTANT WARNING: Clopidogrel must be changed to an active form in your body so that it can treat your condition. Some people do not change clopidogrel to its active form in the body as well as other people. Because the medication does not work as well in these people, they may be at a higher risk of having a heart attack or stroke. There are tests available to identify people who have trouble changing clopidogrelto an active form. Talk to your doctor about whether you should be tested. If you are found to havedifficulty converting clopidogrel to its active form, your doctor may change your dose of clopidogrel or tell you not to take clopidogrel. Your doctor or pharmacist will give you the accounts receivable collector's patient information sheet (Medication Guide) when you begin treatment with clopidogrel and each time you refill your prescription. Read the information carefully and ask your doctor or pharmacist if you have any questions. You can also visit the Food and Drug Administration (FDA) website (https://www.fda.gov/Drugs/DrugSafety/zif823431.htm) or the accounts receivable collector's website to obtain the Medication Guide. Talk to your doctor about the risks of taking clopidogrel. WHY is this medicine prescribed? Clopidogrel is used alone or with aspirin to prevent serious or life-threatening problems with the heart and blood vessels in people who have had a stroke, heart attack, or severe chest pain. This includes people who have percutaneous coronary intervention (PCI; angioplasty; a type of heart surgery) that may involve inserting coronary stents (metal tubes surgically placed in clogged blood vesselsto improve blood flow) or who have coronary artery bypass grafting (CABG; a type of heart surgery).Clopidogrel is also used to prevent serious or life-threatening problems with the heart and blood vessels in people who have peripheral arterial disease (poor circulation in the blood vessels that supply blood to the legs). Clopidogrel is in a class of medications called antiplatelet medications. It works by preventing platelets (a type of blood cell) from collecting and forming clots that may cause a heart attack or stroke. HOW should this medicine be used? Clopidogrel comes as a tablet to take by mouth. It is usually taken once a day with or without food. Take clopidogrel at around the same time every day. Follow the directions on your prescription label carefully, and ask your doctor or pharmacist to explain any part you do not understand. Take clopidogrel exactly as directed. Do not take more or less of it or take it more often than prescribed byyour doctor. Clopidogrel will help prevent serious problems with your heart and blood vessels only as long as you take the medication. Continue to take clopidogrel even if you feel well. Do not stop taking clopidogrel without talking to your doctor. If you stop taking clopidogrel, there is a higher risk that you may have a heart attack or stroke. If you have a stent, there is also a higher risk that you coulddevelop a blood clot in the stent if you stop taking clopidogrel too soon. Are there OTHER USES for this medicine? Clopidogrel is also sometimes used to prevent blood clots in people with atrial fibrillation (a condition in which the heart beats irregularly). Talk to your doctor about the possible risks of using this medication for your condition. This medication may be prescribed for other uses; ask your doctor or pharmacist for more information. What SPECIAL PRECAUTIONS should I follow? Before taking clopidogrel, ??? tell your doctor and pharmacist if you are allergic to clopidogrel, prasugrel (Effient), ticlopidine, any other medications, or any ingredient in clopidogrel tablets. Ask your pharmacist or checkthe Medication Guide for a list of the ingredients. ??? tell your doctor and pharmacist what other prescription and nonprescription medications, vitamins, nutritional supplements, and herbal productsyou are taking or plan to take while taking clopidogrel. Your doctor may need to change the doses of your medications or monitor you carefully for side effects. . ??? The following nonprescription products may interact with clopidogrel: omeprazole (Prilosec, Prilosec OTC, Zegerid); esomeprazole (Nex ium); aspirin and other nonsteroidal anti-inflammatory drugs (NSAIDs) such as ibuprofen (Advil, Motrin) and naproxen (Aleve, Naprosyn). Be sure to let your doctor and pharmacist know that you are taking these medications before you start taking clopidogrel. Do not start any of these medications while taking clopidogrel without discussing with your healthcare provider. ??? tell your doctor if you have bleeding ulcers (sores in the lining of the stomach or small intestine that are bleeding), bleeding in the brain, or any other condition that causes severe bleeding. Your doctor may tell you thatyou should not take clopidogrel. ??? tell your doctor if you have recently been injured and if you h ave or have ever had liver or kidney disease or any condition that may cause bleeding, including stomach problems such as ulcers. ??? tell your doctor if you are , plan to become , orare breast-feeding. If you become while taking clopidogrel, call your doctor. ??? if you are having surgery, including dental surgery, tell the doctor or dentist that you are taking clopidogrel. Your doctor may tell you to stop taking clopidogrel at least 5 days prior to your surgery to avoid excessive bleeding during surgery. Your doctor will tell you when to start taking clopidogrel again after your surgery. ??? you should know that you may bleed more easily or for a longer time than usual while you are taking clopidogrel. Be careful not to cut or hurt yourself while you are takingclopidogrel. What SPECIAL DIETARY instructions should I follow? Unless your doctor tells you otherwise, continue your normal diet. What should I do IF I FORGET to take a dose? Take the missed dose as soon as you remember it. However, if it is almost time for the next dose, skip the missed dose and continue your regular dosing schedule. Do not take a double dose to make up for a missed one. What SIDE EFFECTS can this medicine cause? Some side effects can be serious. If you experience any of the following symptoms, call your doctorimmediately: ??? hives ??? rash ??? itching ??? difficulty breathing or swallowing ??? swelling of the face, throat, tongue, lips, eyes, hands, feet, ankles, or lower legs ??? hoarseness ??? black and tarry stools ??? red blood in stools ??? bloody vomit ??? vomit that looks like coffee grounds ??? unusual bleeding or bruising ??? pink or brown urine ??? slow or difficult speech ??? weakness or numbness of anarm or a leg ??? changes in vision ??? fever ??? shortness of breath ??? fast heartbeat ??? pale skin ??? purple patches or bleeding under the skin ??? confusion ??? yellowing of the skin or eyes ???seizures Clopidogrel may cause other side effects. Call your doctor if you have any unusual problems while taking this medication. If you experience a serious side effect, you or your doctor may send a report to the Food and Drug Administration's (FDA) MedWatch Adverse Event Reporting program online (https://www.fda.gov/Safety/MedWatch) or by phone ( ). What should I know about STORAGE and DISPOSAL of this medication? Keep this medication in the container it came in, tightly closed, and out of reach of children. Store it at room temperature and away from excess heat and moisture (not in the bathroom). Unneeded medications should be disposed of in special ways to ensure that pets, children, and otherpeople cannot consume them. However, you should not flush this medication down the toilet. Instead,the best way to dispose of your medication is through a medicine take-back program. Talk to your pharmacist or contact your local garbage/recycling department to learn about take-back programs in your community. See the FDA's Safe Disposal of Medicines website (https://goo.gl/c4Rm4p) for more information if you do not have access to a take-back program. It is important to keep all medication out of sight and reach of children as many containers (such as weekly pill minders and those for eye drops, creams, patches, and inhalers) are not child-resistant and young children can open them easily. To protect young children from poisoning, always lock safety caps and immediately place the medication in a safe location ??? one that is up and away and out of their sight and reach. https://www.[employer]anda[employer].org What should I do in case of OVERDOSE? In case of overdose, call the poison control helpline at . Information is also available online at https://www.poisonhelp.org/help. If the victim has collapsed, had a seizure, has trouble breathing, or can't be awakened, immediately call emergency services at 911. Symptoms of overdose may include the following: ??? unusual bruising or bleeding What OTHER INFORMATION should I know? Keep all appointments with your doctor. Do not let anyone else take your medication. Ask your pharmacist any questions you have about refilling your prescription. It is important for you to keep a written list of all of the prescription and nonprescription (wafu-bsa-tforojq) medicines you are taking, as well as any products such as vitamins, minerals, or otherdietary supplements. You should bring this list with you each time you visit a doctor or if you areadmitted to a hospital. It is also important information to carry with you in case of emergencies. This report on medications is for your information only, and is not considered individual patient advice. Because of the changing nature of drug information, please consult your physician or pharmacist about specific clinical use. The [employer] represents that the information provided hereunder was formulated with a reasonable standard of care, and in conformity with professional standards in the field. [employer] makes no representations or warranties, express or implied, including, but not limited to, any implied warranty of merchantability and/or fitness for a particular purpose, with respect to such information and specifically disclaims all such warranties. Users are advised that decisions regarding drug therapy are complex medical decisions requiring the independent, informed decision of an appropriate health home care giver, and the information is provided for informational purposes only. The entire monograph for a drug should be reviewed for a thorough understanding of the drug's actions, uses and side effects. The [employer] does not endorse or recommend the use of any drug.The information is not a substitute for medical care. AHFS?? Patient Medication Information???. ?? Copyright, 2023. [employer]??, [address], [address], [place], [place]. All Rights Reserved. Duplication for commercial use must be authorized by [facility]. Selected Revisions: January 12, 2024. AHFS?? Patient Medication Information???. ?? Copyright, 2024 ?? * Event Display: Hemodynamic Procedure Report Authored Date: * Event Display: Hemodynamic Procedure Report Authored Date: * Bradley Hughes: PERFORM, SIGN, VERIFY Event Display: Cardiac Rehab Note Authored Date: [id number] Patient: VIVEK SHUKLA [facility]: [id number] Age: 64 years Sex: Male : 1960 Associated Diagnoses: None Author: Bradley Hughes Diagnosis Cardiac Rehab Diagnosis: Pt currently NPO for Cardiac Cath, will F/U post procedure.. Admission evaluation note * Tc Boswell MD: PERFORM, MODIFY, MODIFY Event Display: Admission Note Authored Date: [id number] Patient: ??VIVEK SHUKLA ? Age:??64 Years?Sex:??Male?:??1960?? Chief Complaint/Reason for Consultation STEMI History of Present Illness Vivek Shukla is a 64 year old male patient with a past medical history of COPD, liver cirrhosis withhistory of hepatitis C s/p Harvoni with SVR, history of splenectomy, GERD, history of opiate use disorder in remission on long-term methadone therapy, latent tuberculosis, recently diagnosed non-sustained ventricular tachycardia who presented to the ED at [facility] with chest pain. He was at the gym working out this afternoon and felt well, however??starting about 1430, he developed a sharp severe central chest pain with gradual onset. The pain did radiate up into his left shoulder and slightly into his back and was associated with diaphoresis.??The pain had persisted for 45 minutes by the time patient presented to the ED. At the ED in [facility], EKG showed ST elevations in II, III, aVF, V3, V4, V5 V6??diagnostic for STEMI. CXR with no acute abnormalities. Patientdid also undergo CT angiography to rule out arterial dissection which confirmed this and showed only multiple splenules, right common iliac artery calcification and chronic spinal degenerative disease along with prominent coronary calcification. Patient received 325 mg aspirin and 300 mg clopidogrel at 1545. Patient received 40 mg of tenecteplase at 1603. Patient's chest pain improved to a 2/10 and EKG showed improvement of ST elevations more than 70%. Patient was transferred to [facility] hemodynamically stable pending interventional cardiology evaluation. On arrival to [facility] patient was hemodynamically stable and in no acute distress. He endorsed significant improvement of chest pain but did mention mild 2/10 chest pain which improved to 1/10 with a single dose of nitroglycerin 0.4 mg. No abnormalities on physical exam. Labs showing troponin 42, 472 with mild reactive??leukocytosis. Patient did have transiently soft pressures with SBP 120 after receiving the nitroglycerin but otherwise remained stable. Patient discussed with interventional cardiology and was planned to have cardiac catheterization tomorrow AM. Review of Systems A full review of systems was completed and??was otherwise negative except as mentioned in history of present illness. Objective Measurements?? Height: 175 cm (09/21/24) Weight: 70 kg (09/21/24) Dry Weight: 69.5 kg (09/21/24) Body Mass Index: 22.86 kg/m2 (09/21/24) ? Vital Signs?? Temperature: 98.4 DegF (09/21/24 20:00:00) Temperature Route: Oral (09/21/24 20:00:00) Pulse Rate: 90 bpm (09/21/24 18:43:00) Heart Rate Monitored: 75 bpm (09/21/24 22:00:20) Respiratory Rate:??13 br/min??Low (09/21/24 22:00:20) Systolic Blood Pressure: 128 mm Hg (09/21/24 22:00:00) Diastolic Blood Pressure: 80 mm Hg (09/21/24 22:00:00) Blood pressure sites: Arm, right (09/21/24 22:00:00) Mean Arterial Pressure: 94 mm Hg (09/21/24 18:43:00) Pulse Pressure: 48 mm Hg (09/21/24 22:00:00) Oxygen Saturation: 95 % (09/21/24 22:00:20) Mode of Delivery (Oxygen): Room air (09/21/24 22:00:00) ? Physical Exam Constitutional: Alert, in no acute distress. Head EENT: Extraocular muscle movement intact.??Moist mucous membranes.?? Neck: Supple. No JVD. Cardiovascular: S1, S2 regular. No murmurs, rubs or gallops. Respiratory: Clear to auscultation. No wheezing or crackles. No use of accessory muscles. Gastrointestinal: Abdomen soft, non-tender, non-distended. Normal bowel sounds. Extremities: No lower extremity pitting??edema. Neurologic: Awake, alert and oriented to time, place and person, Speech normal. No focal neurological deficits. Skin: No rash. Psychiatric: Normal mood and affect.?? Assessment/Plan Diagnoses STEMI (ST elevation myocardial infarction) ??(I21.3) ?? Vivek Shukla is a 64 year old male patient with a past medical history of COPD, liver cirrhosis withhistory of hepatitis C s/p Harvoni with SVR, history of splenectomy, GERD, history of opiate use disorder in remission on long-term methadone therapy, latent tuberculosis, recently diagnosed non-sustained ventricular tachycardia who presented to the ED at [facility] with chest pain and was found to have STEMI. Patient received thrombolytics with good response and almost complete improvement of chest pain and ST elevations. He is now admitted to the [facility] for post-lytics monitoring and pending cardiac catheterization. ?? ST Elevation Myocardial Infarction H/o nonsustained ventricular tachycardia and PVCs Presented with sharp central chest pain radiating to left shoulder and back Tenecteplase at 1603, improvement in ST elevations Troponin 42, 472. Cardiac history of PVCs and NSVT recently started on beta gabriela. RF: Family history Prior EF 50-55% with global hypokinesis, diastolic dysfunction, aortic root dilatation with no aneurysm ?? Plan: - Continue heparin drip pending cath - Cardiac catheterization tomorrow, NPO after midnight - Loaded with aspirin and clopidogrel, continue until cath - Continue atorvastatin 80mg daily - Continue home metoprolol succinate 12.5 mg XL daily - EKG PRN for??chest pain - Echocardiogram to determine further medication - A1c,??lipid panel - Cardiac rehab - Continue magnesium oxide 400 mg daily - Well [employer] Analysis regarding dietary modification, regular physical activity, weight loss, and smoking cessation ?? Right iliac artery calcification and ulcerated plaques: Will need outpatient vascular surgery followup ?? COPD: Continue home LABA/ICS inhaler and albuterol rescue inhaler ?? GERD: Continue home PPI, would switch to pantoprazole if needs to be on clopidogrel ?? Opiate use disorder in remission: Continue home methadone 16 mg daily, confirmed with [facility]. Mansoor need last dose letter when discharged. Usually gets monthly supply. ?? Liver cirrhosis with history of hepatitis C s/p Harvoni with SVR, history of splenectomy: Continue outpatient followup with GI Latent tuberculosis: Continue outpatient followup with ID and TB clinic ?? Full code ?? Patient seen and discussed with the CCU fellow, Daniel Boone. Tc Boswell?? Internal Medicine Resident PGY-2 Pager #[phone] Histories Allergies Allergies ?(Active and Proposed Allergies Only) No Known Medication Allergies? (Severity: Unknown severity, Onset: Unknown) Cats? (Severity: Unknown severity, Onset: Unknown) Mold? (Severity: Unknown severity, Onset: Unknown) Dust? (Severity: Unknown severity, Onset: Unknown) ? Past Medical History/Problem List Active Problems(12) Actinic keratitis Asthma with COPD Chronic GERD Cirrhosis of liver Drug-induced constipation Gastroesophageal reflux disease without esophagitis History of hepatitis C History of splenectomy History of vertigo Opioid dependence on agonist therapy Unexplained night sweats Ventricular tachycardia ? Past Surgical History No surgery history documented. ? Social History Alcohol Details:??Use: Past. Employment/School Details:??Status: Retired. Exercise Details:??Self assessment: Good condition. ??Regular exercise: Yes. ??Exercise frequency: 5-6 times/week. ??Exercise type: Walking, Weight lifting. Home/Environment Details:??Living situation: Home/Independent. ??Lives with: Mother. Nutrition/Health Details:??Diet: Regular. ??Feels highly stressed: No. Substance Abuse Details:??Use: Past. ??Type: Cocaine, Heroin, Marijuana, Prescription medications. ??Other: On Methadone therapy.. ??Started at age: 17 Years. ??Stopped at age: 58 Years. ??Previous treatment: Treatment center, Inpatient. Tobacco Details:??Use: Never (less than 100 in lifetime). ? Family History Father: Bladder cancer; Cancer of prostate; Diabetes mellitus; Thyroid cancer Mother: Heart disease; Parkinson disease Pat. Grandfather: Alcohol abuse Sister: Diabetes mellitus Brother: Schizoaffective disorder ? Medications Home Medications Albuterol (Albuterol (Eqv-Proventil HFA) 90 mcg/inh inhalation aerosol)??2 puff(s) Inhalation Every6 hours Budesonide-Formoterol (Symbicort 160mcg/4.5mcg Inhaler)??2 puff(s) Inhalation 2 times a day for 30 Days Methadone??See Instructions Liquid-22mg per day Metoprolol (metoprolol 25 mg oral tablet, extended release)??12.5 Milligram 0.5 tablet By Mouth Daily ? Inpatient Medications Medications (18) Active SCHEDULED: (9) Aspirin 81 mg EC Tablet (aspirin 81 mg oral delayed release tablet) ??81 mg, By Mouth, Daily Atorvastatin 80 mg Tablet (atorvastatin 80 mg oral tablet) ??80 mg, By Mouth, Daily at bedtime Breo Ellipta 200 mcg / 25 mcg Inhaler (Breo Ellipta 200 mcg-25 mcg Inhaler) ??1 puffs, Inhalation, Daily Clopidogrel 75 mg Tablet (clopidogrel 75 mg oral tablet) ??75 mg, By Mouth, Daily Methadone 10mg/5mL UD Solution (Methadone Liquid) ??16 mg 8 mL, By Mouth, Daily Metoprolol 25 mg XL Tablet (metoprolol 25 mg oral tablet, extended release) ??12.5 mg, By Mouth, Daily NaCl 0.9% Flush 3ml (NaCL 0.9% Flush) ??3 mL, IV Push, Every 8 hours Nitroglycerin 2% Oint UD (Nitroglycerin 2% Topical) ??0.5 inches, Topically, Daily Pantoprazole 40 mg EC Tablet (pantoprazole 40 mg oral delayed release tablet) ??40 mg, By Mouth, Daily CONTINUOUS: (2) Heparin 25,000 units / 250 mL D5W premix 25,000 units [12 units/kg/hr] + D5%W Premixed IV 250 mL (Heparin 25,000 units in 250 mL Premix 25,000 units [12 units/kg/hr] + D5%W Premixed IV 250 mL) ??250 mL, IV Infusion, 8.4 mL/hr NaCL 0.9% (1000 mL) Cont IV 208.5 mL (NaCL 0.9% Bolus 208.5 mL) ??208.5 mL, IV Infusion PRN: (7) Acetaminophen 325 mg Tablet (Acetaminophen Tablet) ??650 mg, By Mouth, Every 4 hours Albuterol 90mcg/Inhalation Inhaler HFA (albuterol CFC free 90 mcg/inh inhalation aerosol) ??180 mcg2 puffs, Inhalation, Every 4 hours Heparin 5000 units/mL Inj (1 mL) (Heparin Inj) ??4,000 units 0.8 mL, IV Push, Every 6 hours Heparin 5000 units/mL Inj (1 mL) (Heparin Inj) ??2,000 units 0.4 mL, IV Push, Every 6 hours NaCl 0.9% Flush 3ml (NaCL 0.9% Flush) ??3 mL, IV Push, Every 8 hours nalOXONE ??400mcg/mL Inj (nalOXONE Inj) ??0.2 mg 0.5 mL, IV Push, Every 5 minutes Nitroglycerin 0.4 mg Sublingual Tablet (nitroglycerin 0.4 mg sublingual tablet) ??0.4 mg, Sublingual, Every 5 minutes ? IV Titrations (Last 24 hrs) Most Recent Infusions (Max of 3)? 09/21 16:06 ? Heparin 25,000 units in 250 mL Premix 25,000 units [12 units/kg/hr] + D5%W Premixed IV 250 mL 12 units/kg/hr ? 09/21 22:00 09/21 21:31 09/21 21:00 Heparin 25,000 units in 250 mL Premix 25,000 units [12 units/kg/hr] + D5%W Premixed IV 250 mL 16 units/kg/hr 16 units/kg/hr 12 units/kg/hr ? Results Recent Labs BLOOD COUNT & DIFF WBC 14.2 k/mm3 (High)?? 09/21/2024 18:47 RBC 4.83 m/mm3 ()?? 09/21/2024 18:47 Hgb 14.4 Gm/dL ()?? 09/21/2024 18:47 Hct 42.0 % ()?? 09/21/2024 18:47 MCV 87.0 femtoliters ()?? 09/21/2024 18:47 MCH 29.8 pg ()?? 09/21/2024 18:47 MCHC 34.3 Gm/dL ()?? 09/21/2024 18:47 Platelet Count 401 k/mm3 ()?? 09/21/2024 18:47 RDW-SD 43.9 femtoliters ()?? 09/21/2024 18:47 MPV 9.6 femtoliters ()?? 09/21/2024 18:47 Nucleated RBC (Automated) 0.0 #/100 WBC'S ()?? 09/21/2024 18:47 Abs. NRBC 0.0 k/mm3 ()?? 09/21/2024 18:47 Abs. Neut 12.2 k/mm3 (High)?? 09/21/2024 16:19 Abs. Lymph 1.4 k/mm3 ()?? 09/21/2024 16:19 Abs. Ritchie 1.3 k/mm3 ()?? 09/21/2024 16:19 Abs. Eo 0.2 k/mm3 ()?? 09/21/2024 16:19 Abs. Baso 0.1 k/mm3 ()?? 09/21/2024 16:19 Neut % 80.3 % (High)?? 09/21/2024 16:19 Lymph % 9.1 % (Low)?? 09/21/2024 16:19 Ritchie % 8.4 % ()?? 09/21/2024 16:19 Eos % 1.1 % ()?? 09/21/2024 16:19 Baso % 0.5 % ()?? 09/21/2024 16:19 Imm Gran 0.6 % ()?? 09/21/2024 16:19 Abs. Imm Gran 0.1 k/mm3 ()?? 09/21/2024 16:19 ?? CARDIAC High Sensitivity Troponin (HSTnT) 472 ng/L (Critical)?? 09/21/2024 18:47 ?? CHEM GENERAL Sodium 138 mmol/L ()?? 09/21/2024 18:47 Potassium 4.3 mmol/L ()?? 09/21/2024 18:47 Chloride 103 mmol/L ()?? 09/21/2024 18:47 Bicarbonate Level 21 mmol/L (Low)?? 09/21/2024 18:47 Anion Gap 14 mmol/L ()?? 09/21/2024 18:47 Glucose Level 103 mg/dL (High)?? 09/21/2024 18:47 BUN 23 mg/dL ()?? 09/21/2024 18:47 Creatinine-Blood 0.82 mg/dL ()?? 09/21/2024 18:47 Estimated GFR Creatinine 97 ML/MIN/1.73 M2 ()?? 09/21/2024 18:47 Calcium 9.4 mg/dL ()?? 09/21/2024 18:47 ?? COAG APTT 37.1 seconds (High)?? 09/21/2024 18:47 ?? MISC. CHEMISTRY Hold Gel Top SPECIMEN DISCARDED AFTER 1 WEEK ()?? 09/21/2024 16:19 ?? URINE OTHER Est Creatinine Clearance 87.11 mL/min ()?? 09/21/2024 19:54 ?? VIROLOGY COVID-19 PCR Specimen Source NASAL ()?? 09/21/2024 18:55 COVID-19 PCR Result NEGATIVE ()?? 09/21/2024 18:55 ? EKG study * Event Display: EKG Authored Date: * Event Display: ECG 12-Lead Authored Date: Please click on pdf link to open report * Event Display: ECG 12-Lead Authored Date: Ventricular Rate: 67 BPM Atrial Rate: 67 BPM P-R Interval: 232 ms QRS Duration: 122 ms Q-T Interval: 450 ms QTC Calculation(Bazett): 475 ms P Acton: 52 degrees R Acton: -17 degrees T Acton: 68 degrees Sinus rhythm with 1st degree A-V block Inferior infarct (cited on or before 06-Mar-2024) Anterolateral infarct , age undetermined Abnormal ECG When compared with ECG of 22-Sep-2024 07:34, Premature ventricular complexes are no longer Present Anterior infarct is now Present Anterolateral infarct is now Present T wave inversion more evident in Anterior leads Confirmed by Irwin Campbell ([id number]) on 09/23/2024 1:47:27 PM [place]: Irwin Campbell * Event Display: ECG 12-Lead Authored Date: Please click on pdf link to open report * Event Display: ECG 12-Lead Authored Date: Ventricular Rate: 70 BPM Atrial Rate: 70 BPM P-R Interval: 262 ms QRS Duration: 124 ms Q-T Interval: 412 ms QTC Calculation(Bazett): 444 ms P Acton: 71 degrees R Acton: -21 degrees T Acton: 58 degrees Sinus rhythm with 1st degree A-V block with occasional Premature ventricular complexes Inferior infarct , age undetermined Abnormal ECG When compared with ECG of 21-Sep-2024 17:33, Premature ventricular complexes Present Confirmed by GLENN HERNANDEZ MD ([id number]) on 09/22/2024 7:31:44 PM [place]: GLENN HERNANDEZ MD * Event Display: ECG 12-Lead Authored Date: [id number] Please click on pdf link to open report * Event Display: ECG 12-Lead Authored Date: [id number] Ventricular Rate: 84 BPM Atrial Rate: 84 BPM P-R Interval: 206 ms QRS Duration: 126 ms Q-T Interval: 372 ms QTC Calculation(Bazett): 439 ms P Acton: 60 degrees R Acton: -18 degrees T Acton: 54 degrees Normal sinus rhythm Non-specific intra-ventricular conduction block Inferior infarct (cited on or before 06-Mar-2024) Nonspecific ST abnormality Abnormal ECG When compared with ECG of 06-Mar-2024 10:41, Premature ventricular complexes are no longer Present Nonspecific T wave abnormality now evident in Anterior leads Confirmed by Irwin Campbell ([id number]) on 09/22/2024 7:27:44 PM [place]: Irwin Campbell Heart * Event Display: Echocardiogram - Complete Authored Date: [id number] Transthoracic Echocardiography Report (TTE) Patient Demographics Patient Name VIVEK SHUKLA Date of Study 09/23/2024 Corporate Gender Male Facility Race .[id number] Ethnicity Date of 1960 Height: 69 inches Age 64 year(s) Weight: 136.69 pounds Accession Number [id number] BSA: 1.76 m2 Room Number [id number] BMI: 20.19 kg/m2 Referring Terence Win MD Interpreting [facility] Physician Physician Caity HARPER Finance Manager Juana CHOPRA Casandra Indications STEMI. Clinical History CAD s/p STEMI; ALCIRA to mid-LAD (09/22/24) COPD Hep C Liver cirrhosis Study Data Type of Study TTE procedure:Echo Complete-(Doppler, Colorflow) with Contrast. Procedure Information:Definity was administered by Bilingual Research Interviewer . Study Date09/23/2024 Start Time: 09:31 AM Study Location: [facility] [place] Adult Echo Study Status: Echo lab Patient Status: Routine Technical Quality: Fair Blood Pressure:106/52 mmHg EKG: Normal sinus rhythm HR: 80 bpm Contrast Medium: Definity. Amount - 2 ml Allergies - Mold. - Cats. 2D Measurements LV Diastolic Dimension: 5.7 cm LV Systolic Dimension: 5.6 cm LV Septum Diastolic: 0.9 cm LV PW Diastolic: 0.9 cm AO Root Dimension: 3.9 cm LA Dimension: 4.3 cm LA ESV (BP):65.1 ml LVOT Stroke Volume: 58.89 ml LA ESV Index: 37 ml/m2 Stroke Volume Index33.46 ml/m2 LVOT: 2.2 cm Cardiac Index:2.68 l/min/m2 Doppler Measurements AV Peak Velocity: 139 cm/s MV Peak E-Wave: 47.4 cm/s AV Peak Gradient: 7.73 mmHg MV Peak A-Wave: 79.5 cm/s AV Mean Gradient: 4 mmHg MV E/A Ratio: 0.6 AV VTI:24 cm MV P1/2t: 45 msec LVOT Peak Velocity: 73.6 cm/s LVOT VTI15.5 cm MV Deceleration Time: 153 msec AV Area (Continuity):2.45 cm2 MV Area (PHT): 4.89 cm2 E' Septal Velocity: 4.24 cm/s E' Lateral Velocity: 3.37 cm/s E/Med E':11.62496 E/Lat E':14.08557 Cardiac Anatomy Left Ventricle/Interventricular Septum Grade I, mild diastolic dysfunction with impaired LV relaxation and normal left atrial pressure. Left ventricular wall thickness is normal. There is no evidence of left ventricular thrombus. The left ventricular ejection fraction is 25-30 %. There is dyskinesis of the basal inferolateral wall with hypokinesis of the mid-distal anteroseptal wall, mid-distal inferoseptal wall, mid-distal inferior wall, distal anterior wall, distal anterolateral wall, distal inferolateral wall and apex. Left Atrium/Interatrial Septum The left atrium is mildly dilated. Aortic Valve The aortic valve was not well visualized. No aortic stenosis or regurgitation. Mitral Valve Normal mitral valve structure. Trace regurgitation. No significant stenosis. Aorta The aortic root is mildly dilated at 3.9 cm (leading edge-leading edge, indexed for sex and BSA). The ascending aorta is not well visualized. Right Ventricle Normal right ventricular size and function. Right Atrium The right atrium is normal in size. Pulmonic Valve The pulmonic valve was not well visualized. Trace pulmonic regurgitation. No pulmonic stenosis. Tricuspid Valve The tricuspid valve was not well visualized. Trace tricuspid regurgitation. No tricuspid stenosis. Pumonary Artery An accurate pulmonary artery pressure could not be obtained. Venous Structures Normal IVC size and respiratory collapse. Pericardium/Extracardiac There is no pericardial effusion. Summary Due to suboptimal visual quality, IV contrast was used to enhance this study. The left ventricular ejection fraction is 25-30 % (Biplane EF 26%) There is dyskinesis of the basal inferolateral wall with hypokinesis of the mid-distal anteroseptal wall, mid-distal inferoseptal wall, mid-distal inferior wall, distal anterior wall, distal anterolateral wall, distal inferolateral wall and apex. Normal right ventricular size and function. The left atrium is mildly dilated. No significant valvular disease. Comparison Comparison is made to the study of July 23, 2024. The left ventricular systolic function has decreased with new wall motion abnormalities. Signature * Event Display: Echocardiogram - Complete Authored Date: Cardiology * Event Display: Cardiac Rhythm Strips Authored Date: * Event Display: Cardiac Rhythm Strips Authored Date: * Event Display: Cardiac Rhythm Strips Authored Date: * Event Display: Cardiac Rhythm Strips Authored Date: Hospital Progress note * Jinny Blackman RN: PERFORM, SIGN, VERIFY Event Display: Progress Note Hospital Authored Date: Patient: VIVEK SHUKLA Age: 64 years Sex: Male : 1960 Associated Diagnoses: None Author: Jinny Blackman RN Findings Problem Related to Alteration in Cardiac Function (new) : Alteration in Cardiac Function/new 09/23/2024 21:00 EST Alteration in Cardiac Status Related to ACS, Cardiac Procedure, Chest pain Goals & Outcomes, Cardiac Status Pt will resume/maintain adequate cardiac output, Pt will resume/maintain adequate hemodynamic status, Pt will resume/maintain adequate respiratory function, Pt will resume/maintain intact neuro function, Pt will maintain adequate GI/ function appropriate for pt, Pt will maintain adequate nutrition status, Pt/caregiver will state understanding of diagnosis, Pt will maintain adequate tissue oxygenation/ventilation, Pt will maintain adequate ventilatory support Cardiac Interventions Implemented Assess/monitor cardiac status, Assess/monitor neuro status, Assess/monitor respiratory status, Assess for tolerance of IV infusions; verify rate & dose, Call/Report variances in ECG to provider, Document & Monitor O2 Sats; Administer O2 as ordered, Ensure adequate caloric intake, If no bowel movement in 3 days activate bowel regime, Monitor & document daily weight, Prep pt for treatments & procedures, Teach/encourage deep breath & cough exercises, Teach/encourage use of incentive spirometer, Pre/post cath guideline Goals/Interventions, Cardiac Yes Cardiac, Problem Start 09/21/2024 19:06 Reviewed Plan with, Cardiac Status Patient Patient Progression, Cardiac Status Patient progressing according to plan . Evaluation Patient is A&Ox 4, up a anam, TELE nsr , VSS, S1S2 Noted, palpable pulses, bowel sounds noted last 09/24, Lung sounds clear, patient denies chest pain, SOB, dizziness, or palpitations, skin Intact, full assessment in the bio physical, educated on signs/symptoms that need to be report immediately, call light in reach, bed in lowest position, care is on going, no acute concerns at this time.. Discharge Information Case Management Discharge Plan : Case Management Discharge Plan Data 09/24/2024 11:42 EST Discharge Level of Care at Discharge [facility] Cardiac Rehab Discharge : Cardiac Rehab 09/24/2024 8:06 EST Patient attending Phase II Yes * Chayito BRITT, Cris: PERFORM, SIGN, VERIFY Event Display: Progress Note Hospital Authored Date: Patient: VIVEK SHUKLA Age: 64 years Sex: Male : 1960 Associated Diagnoses: None Author: Chayito BRITT, Cris Findings Problem Related to Alteration in Cardiac Function (new) : Alteration in Cardiac Function/new 09/23/2024 21:00 EST Alteration in Cardiac Status Related to ACS, Cardiac Procedure, Chest pain Goals & Outcomes, Cardiac Status Pt will resume/maintain adequate cardiac output, Pt will resume/maintain adequate hemodynamic status, Pt will resume/maintain adequate respiratory function, Pt will resume/maintain intact neuro function, Pt will maintain adequate GI/ function appropriate for pt, Pt will maintain adequate nutrition status, Pt/caregiver will state understanding of diagnosis, Pt will maintain adequate tissue oxygenation/ventilation, Pt will maintain adequate ventilatory support Cardiac Interventions Implemented Assess/monitor cardiac status, Assess/monitor neuro status, Assess/monitor respiratory status, Assess for tolerance of IV infusions; verify rate & dose, Call/Report variances in ECG to provider, Document & Monitor O2 Sats; Administer O2 as ordered, Ensure adequate caloric intake, If no bowel movement in 3 days activate bowel regime, Monitor & document daily weight, Prep pt for treatments & procedures, Teach/encourage deep breath & cough exercises, Teach/encourage use of incentive spirometer, Pre/post cath guideline Goals/Interventions, Cardiac Yes Cardiac, Problem Start 09/21/2024 19:06 Reviewed Plan with, Cardiac Status Patient Patient Progression, Cardiac Status Patient progressing according to plan . Narrative/Incidental Patient A&Ox4, able to make needs known. NSR on tele. Room air. Denies chest pain, palpitations, SOB or dizziness. Reports having a small bowel movement today. Ambulates in room with steady gait.Has call azevedo and personal belongings in reach, bed locked in low position. * Arsh Vasquez MD: PERFORM, MODIFY Event Display: Progress Note Hospital Authored Date: Patient: ??VIVEK SHUKLA ? Age:??64 Years?Sex:??Male?:??1960?? Subjective NAOE, transferred to acute floor ?? Patient seen and evaluated at bedside this morning. No chest pain, shortness of breath, nausea, vomiting, or any other concerns. Concerned about no BM in 2 days, increasing bowel regimen. Review of Systems All other systems reviewed and are negative.?? Objective Vital Signs?? Temperature: 97.5 DegF (09/23/24 10:37:00) Temperature Route: Oral (09/23/24 10:37:00) Pulse Rate: 77 bpm (09/23/24 10:37:00) Heart Rate Monitored: 65 bpm (09/22/24 17:00:21) Respiratory Rate: 18 br/min (09/23/24 10:37:00) Systolic Blood Pressure: 115 mm Hg (09/23/24 10:37:00) Diastolic Blood Pressure:??88 mm Hg??High (09/23/24 10:37:00) Blood pressure sites: Arm, right (09/23/24 10:37:00) Mean Arterial Pressure: 97 mm Hg (09/23/24 10:37:00) Pulse Pressure: 27 mm Hg (09/23/24 10:37:00) Oxygen Saturation: 98 % (09/23/24 10:37:00) Mode of Delivery (Oxygen): Room air (09/23/24 10:37:00) Early Warning Score: 2 (09/23/24 10:40:41) ? Intake/Output? 09/21 17:37 09/23 07:00 09/22 07:00 09/21 07:00 09/20 07:00 ?? 09/23 14:09 09/23 14:09 09/23 06:59 09/22 06:59 09/21 06:59 Intake ?970.2 ?120 ?461.2 ?389.0 ?0 Output ? 1675 ?0 ?475 ? 1200 ?0 Net Total ? -704.8 ?120 ?-13.8 ? -811.0 ?0 ? Urine Count ?2 ?2 ?0 ?0 ?0 ? Physical Exam Gen: NAD resting comfortably Neuro: A/Ox3,??conversant HEENT: normocephalic, atraumatic, EOMI, anicteric sclera, mucus membranes moist Respiratory: nonlabored breaths, no accessory muscle use Cardiovascular: extremities warm and well perfused Extremities: no cyanosis, clubbing or edema, spontaneous movement of all four limbs, no obvious deformities Skin: warm and dry, no visible abrasions, rashes, or lesions Psych: linear??thinking, normal range of affect Results Recent Labs BLOOD COUNT & DIFF WBC 11.5 k/mm3 (High)?? 09/22/2024 02:47 RBC 4.82 m/mm3 ()?? 09/22/2024 02:47 Hgb 14.1 Gm/dL ()?? 09/22/2024 02:47 Hct 41.9 % ()?? 09/22/2024 02:47 MCV 86.9 femtoliters ()?? 09/22/2024 02:47 MCH 29.3 pg ()?? 09/22/2024 02:47 MCHC 33.7 Gm/dL ()?? 09/22/2024 02:47 Platelet Count 353 k/mm3 ()?? 09/22/2024 02:47 RDW-SD 43.8 femtoliters ()?? 09/22/2024 02:47 MPV 9.5 femtoliters ()?? 09/22/2024 02:47 Nucleated RBC (Automated) 0.0 #/100 WBC'S ()?? 09/22/2024 02:47 Abs. NRBC 0.0 k/mm3 ()?? 09/22/2024 02:47 ?? CARDIAC High Sensitivity Troponin (HSTnT) 639 ng/L (Critical)?? 09/23/2024 08:10 ?? CHEM GENERAL Sodium 139 mmol/L ()?? 09/23/2024 08:10 Potassium 4.6 mmol/L ()?? 09/23/2024 08:10 Chloride 104 mmol/L ()?? 09/23/2024 08:10 Bicarbonate Level 23 mmol/L ()?? 09/23/2024 08:10 Anion Gap 12 mmol/L ()?? 09/23/2024 08:10 Glucose Level 115 mg/dL (High)?? 09/23/2024 08:10 Hemoglobin A1C (Monitoring) 5.9 % (High)?? 09/22/2024 02:47 BUN 17 mg/dL ()?? 09/23/2024 08:10 Creatinine-Blood 0.88 mg/dL ()?? 09/23/2024 08:10 Estimated GFR Creatinine 95 ML/MIN/1.73 M2 ()?? 09/23/2024 08:10 Calcium 9.6 mg/dL ()?? 09/23/2024 08:10 Magnesium 2.0 mg/dL ()?? 09/22/2024 02:47 Protein, Total 6.3 Gm/dL ()?? 09/22/2024 02:47 Albumin 3.9 Gm/dL ()?? 09/22/2024 02:47 AG Ratio 1.6 ()?? 09/22/2024 02:47 Alkaline Phosphatase 78 units/L ()?? 09/22/2024 02:47 AST (SGOT) 80 units/L (High)?? 09/22/2024 02:47 ALT (SGPT) 22 units/L ()?? 09/22/2024 02:47 Bilirubin, Total 0.4 mg/dL ()?? 09/22/2024 02:47 ?? COAG APTT 51.6 seconds (High)?? 09/22/2024 10:17 ?? ENDOCRINE/TUMOR MARKER TSH 1.70 uIU/mL ()?? 09/22/2024 02:47 ?? LIPID STUDIES Cholesterol 152 mg/dL ()?? 09/22/2024 02:47 Triglycerides 144 mg/dL ()?? 09/22/2024 02:47 HDL Cholesterol 39 mg/dL (Low)?? 09/22/2024 02:47 LDL Cholesterol 84 mg/dL ()?? 09/22/2024 02:47 Non HDL Cholesterol 113 mg/dL ()?? 09/22/2024 02:47 ?? URINE OTHER Est Creatinine Clearance 81.17 mL/min ()?? 09/23/2024 09:12 ?? Echo TTE 09/23 ??Summary ??Due to suboptimal visual quality, IV contrast was used to enhance this ??study. ??The left ventricular ejection fraction is 25-30 % (Biplane EF 26%) ?There is dyskinesis of the basal inferolateral wall with hypokinesis of the ??mid-distal anteroseptal wall, mid-distal inferoseptal wall, mid-distal ??inferior wall, distal anterior wall, distal anterolateral wall, distal ??inferolateral wall and apex. ??Normal right ventricular size and function. ??The left atrium is mildly dilated. ??No significant valvular disease. ?Comparison ??Comparison is made to the study of July 23, 2024. ??The left ventricular systolic function has decreased with new wall motion abnormalities. ?? Assessment/Plan Vivek Shukla is a 64 year old male patient with a past medical history of COPD, liver cirrhosis withhistory of hepatitis C s/p Harvoni with SVR, history of splenectomy, GERD, history of opiate use disorder in remission on long-term methadone therapy, latent tuberculosis, recently diagnosed NSVT whopresented to the ED initially at [facility]??David with chest pain and was found to have STEMI s/pTNK with improvement in ST elevations and chest pain. Transferred to [facility] for cath. PCI on 09/22 ALCIRA to LAD. Transferred out of [facility] to acute floor and has remained hemodynamically stable without chest pain. Echo 09/23 showing worsening EF 25-30% with multiple areas of hypokinesis. Now starting GDMT. Estimated discharge 09/24. ?? He wants to follow up with [facility] here across the street. ?? ST Elevation Myocardial Infarction H/o nonsustained ventricular tachycardia and PVCs Presented with sharp central chest pain radiating to left shoulder and back Tenecteplase at 1603, improvement in ST elevations Troponin 42, 472, pending repeat trop. Cardiac history of PVCs and NSVT recently started on beta gabriela. RF: Family history Prior EF 50-55% with global hypokinesis, diastolic dysfunction, aortic root dilatation with no aneurysm Lipid panel wnl Echo 2/3 LVEF 25-30% with multiple areas of hypokinesis. Plan: - Continue atorvastatin 80mg daily - GDMT: Continue home metoprolol succinate 12.5 mg XL daily, START more meds tomorrow - EKG PRN for??chest pain - Cardiac rehab - Continue magnesium oxide 400 mg daily ?? Right iliac artery calcification and ulcerated plaques: Will need outpatient vascular surgery followup ?? COPD: Continue home LABA/ICS inhaler and albuterol rescue inhaler ?? GERD: Continue home PPI, would switch to pantoprazole if needs to be on clopidogrel ?? Opiate use disorder in remission: Continue home methadone 16 mg daily, confirmed with [facility]. Mansoor need last dose letter when discharged. Usually gets monthly supply. ?? Liver cirrhosis with history of hepatitis C s/p Anders with SVR, history of splenectomy: Continue outpatient followup with GI Latent tuberculosis: Continue outpatient followup with ID and TB clinic Pre-Diabetes: A1c while in [facility] is 5.9, will encourage patient to follow up with PCP for further management ?? Full code ?? Arsh Vasquez MD (Jake)??Emergency Medicine, PGY-1 Patient seen and management discussed with attending physician,?Lynda. [facility] ? * Lynda HARPER, Kaylene Akhtar: PERFORM Event Display: Progress Note Hospital Authored Date: Attending Attestation:??I have seen and evaluated this patient on the date of service.?I have discussed the case and its management with the??resident and agree with the findings and plan as documented in the resident???s note.??He has felt well since arrival and PCI. No CV complaints. Subsequent to rounding echo reviewed showing CMP. On low dose BB, would add lisinopril 5mg qd and further GDMT as out pt. Will need repeat echo as out pt and evaluation for further management and ICD as appropriate based on LV recovery. Patient Care team information Care Team Personnel Name: Jinny Blackman RN Position: [facility] RN Member Role: Primary Care Nurse Name: Anaid Brock NP Position: [facility] PCO Associate Professional Member Role: PCP Address: [address] [place] [address] Telecom: Name: Fartun Hooks RN Position: [facility] RN Member Role: Primary Care Nurse Care Team Related Persons Name: KRISTY SHUKLA Name: MARY VERA Name: DORCAS VERA Insurance Providers Guarantor name: VIVEK SHUKLA Health Plan Information #: 1 Payer: MEDICARE HMO BLUE BC65 REPLC Member Number: [id number] Policy Number: NA Group Number: [id number] Health Plan Information #: 2 Payer: [facility] Member Number: [id number] Policy Number: NA Group Number: [id number]
--- OUTSIDE RECORDS SUMMARY | 2024-10-08 15:28 | XMS_ITS | Continuity of Care Document ---
Author Organization [facility] Address [address] [place] [address]- Care Team Providers Care Hospital Television Rental Clerk Name Role Phone Anaid Brock NP Primary Care Physician Encounter [facility] NBR [id number] Date(s): 09/28/24 - 10/05/24 [facility] [address] [address]- Encounter Diagnosis History of placement of stent in LAD coronary artery(Discharge Diagnosis) - 09/28/24 NSTEMI (non-ST elevated myocardial infarction)(Discharge Diagnosis) - 09/28/24 Cirrhosis of liver(Discharge Diagnosis) - 09/28/24 Opioid dependence on agonist therapy(Discharge Diagnosis) - 09/28/24 Asthma with COPD(Discharge Diagnosis) - 09/28/24 IFG (impaired fasting glucose)(Discharge Diagnosis) - 09/28/24 Heart failure(Discharge Diagnosis) - 09/28/24 Calcification of artery(Discharge Diagnosis) - 09/28/24 Attending Physician: Anaid Brock NP Encounter Type: Office Visit Allergies, Adverse Reactions, Alerts No Known Medication [...] RSV vaccine preF3, recombinant 08/08/23 Recorded SARS-CoV-2(COVID-19)mRNA-LNP vac([id number]) 06/07/23 Recorded pneumococcal 13-valent vaccine 04/13/22 Given SARS-CoV-2 (COVID-19) mRNA-1273 vaccine 12/14/21 R ecorded SARS-CoV-2 (COVID-19) mRNA-1273 vaccine 07/14/21 R ecorded SARS-CoV-2 (COVID-19) mRNA BNT-162b2 vac 10/11/20 Recorded SARS-CoV-2 (COVID-19) mRNA BNT-162b2 vac 09/20/20 Recorded pneumococcal 23-valent vaccine 09/10/20 Recorded tetanus/diphtheria/pertussis, acel(Tdap) 09/10/20 Recorded zoster vaccine, inactivated 03/01/19 Recorded zoster vaccine, inactivated 12/09/18 Recorded 1Result Comment: [facility] vial [id number] Medications Albuterol (Eqv-Proventil HFA) 90 mcg/inh inhalation [...] 09/24/24 8:31:00 AM EST,Route to Pharmacy Electronically, [facility], Partial fill upon patient request if [...] Refills, Maintenance, 09/24/24 8:31:00 AM EST, Tablet, [facility], Partial fill upon patient request [...] 09/24/24 8:31:00 AM EST,Route to Pharmacy Electronically, [facility], Partial fill upon patient request [...] Refills, Maintenance, 09/24/24 8:31:00 AM EST, Tablet, [facility], Partial fill upon patient request if [...] capsule Repeat number: 1 Methadone See Instructions, Liquid-16mg per day, 0 Refills, Maintenance, 04/21/21 7:07:00 AM EDT, Partial fillupon patient request if the prescription is for a schedule II opioid drug. Start Date: 04/21/21 Status: Ordered Repeat number: 1 metoprolol 25 mg oral tablet, extended release 25 mg, By Mouth, Daily, # 30 tablet, Refills 2, Tot. Refills 2, Maintenance, 09/24/24 8:31:00 AM EST,Route to Pharmacy Electronically, [facility], Partial fill upon patient request [...] Confirmed Active Cirrhosis of liver Confirmed Active CAD (coronary artery disease) Confirmed Active Drug-induced constipation Confirmed Active Chronic GERD Confirmed Active Gastroesophageal reflux disease without esophagitis Confirmed Active History of splenectomy Confirmed Active History of vertigo Confirmed Active History of hepatitis C Confirmed Active Actinic keratitis Confirmed Active Unexplained night sweats Confirmed Active Opioid dependence on agonist therapy Confirmed Active PVD (peripheral vascular disease) Confirmed Active Diagnosis Diagnosis Type Effective Dates Health Status Clinical Service Informant History of placement of stent in LAD coronary artery Discharge Diagnosis 09/28/24 NSTEMI (non-ST elevated myocardial infarction) Discharge Diagnosis 09/28/24 Cirrhosis of liver Discharge Diagnosis 09/28/24 Opioid dependence on agonist therapy Discharge Diagnosis 09/28/24 Asthma with COPD Discharge Diagnosis 09/28/24 IFG (impaired fasting glucose) Discharge Diagnosis 09/28/24 Heart failure Discharge Diagnosis 09/28/24 Calcification of artery Discharge Diagnosis 09/28/24 Vital Signs Most recent to oldest [Reference Range]: 1 Height 175 cm (09/28/24 9:26 AM) Weight 70.2 kg (09/28/24 9:26 AM) Oxygen Saturation [94-100 %] 98 % (09/28/24 9:26 AM) Pulse Rate [55-90 bpm] 91 bpm *H* (09/28/24: AM) Body Mass Index [18.5-24.99 kg/m2] 22.92 kg/m2 (09/28/24: AM) Blood Pressure [90-138/55-84 mm Hg] 126/ 72mm Hg (09/28/24: AM) Respiratory Rate [16-30 br/min] 15 br/mi n *L* (09/28/24: AM) Mode of Delivery (Oxygen) Room air (09/28/24: AM) Blood pressure sites Arm, left (09/28/24 AM) Dry Weight 70.2 kg (09/28/24: AM) Weight Obtained Via Standing scale (09/28/24: AM) Dry Weight Obtained Via Standing scale (09/28/24: AM) Social History Social History Type Response Smoking Status Never (less than 100 in lifetime) entered on: 01/20/21 Sex Sex Representation Male (finding) Note * Paige Anthony: PERFORM Event Display: Patient Education/Instruction Authored Date: [id number] Ambulatory Adult Visit Summary [facility] [address] [address] Name: TARIQ SHUKLA : 1960?? Visit: 09/28/2024 09:20?? Ambulatory Visit Instructions ?? Your Care Team Primary Care Provider Anaid Brock NP? This Visit Provider Anaid Brock NP. Your Diagnosis History of placement of stent in LAD coronary artery NSTEMI (non-ST elevated myocardial infarction) Cirrhosis of liver Opioid dependence on agonist therapy Asthma with COPD IFG (impaired fasting glucose) Heart failure Calcification of artery Vitals Signs Pulse Rate:??91 bpm??High Height: 175 cm Respiratory Rate:??15 br/min??Low Weight: 70.2 kg Systolic Blood Pressure: 126 mm Hg Body Mass Index: 22.92 kg/m2 Diastolic Blood Pressure: 72 mm Hg Body surface area: 1.85 Oxygen Saturation: 98 % ?? What to do next Scheduled Follow-Up Appointments 2024 9:15 AM EDT ?? With: Kelin CURRY, Jolly Laguna Where: [facility] [address] [place] [address]- Status: Pending Tuesday 9:40 AM EDT ?? With: Delmy CURRY, Anaid Schumacher Where: [address] [address]- Status: Pending Future Orders Hemoglobin A1C (Monitoring) - Routine, Once, 03/04/24 12:59:00 EDT, Future Order, [facility], Blood?? Lipid Panel - Routine, Once, 03/04/24 12:59:00 EDT, Future Order, [facility], Blood?? Comprehensive Metabolic Panel - Routine, Once, 03/04/24 12:59:00 EDT, Future Order, [facility], Blood?? Medications The list below reflects the information in our records and provided by you today along with any changes made during this visit. Please continue your medications until treatment is completed or stopped by your provider. If this is different from the information you have or there are other questions,please contact the prescribing provider. What How Much When Instructions Changed Methadone See instructions Liquid-16mg per day ?? Unchanged Albuterol (Albuterol (Eqv-Proventil HFA) 90 mcg/ inh inhalation aerosol) 2 puff(s) Inhalation Every 6 hours Unchanged Aspirin (aspirin 81 mg oral delayed release tablet) 81 Milligram Oral Daily Duration: 30 Days Unchanged Atorvastatin (atorvastatin 80 mg oral tablet) 80 Milligram Oral Daily at Bedtime Duration: 30 Days Unchanged Budesonide-Formoterol (Symbicort 160mcg/ 4.5mcg Inhaler) 2 puff(s) Inhalation Twice a day Duration: 30 Days Unchanged Clopidogrel (clopidogrel 75 mg oral tablet) 75 Milligram Oral Daily Duration: 30 Days Unchanged dapagliflozin (dapagliflozin 10 mg oral tablet) 10 Milligram Oral Daily Duration: 30 Days Unchanged Magnesium Oxide (magnesium oxide 400 mg oral capsule) 1 capsule Oral Daily Unchanged Metoprolol (metoprolol 25 mg oral tablet, extended release) 25 Milligram Oral Daily Duration: 30 Days Medications and Immunizations Administered Medications Given During Visit No medications given during this visit.?? Allergies (NKA means No Known Allergies) Cats Dust Mold No Known Medication Allergies Common Emergency Awareness Tips IS IT A [...] are strongly encouraged to quit. Please call [facility] at [phone] or [phone]-[phone] ([phone]) or log in to [email or web address] for referrals to smoking cessation programs. ?? The National Suicide Prevention Hotline is available 14/02 if you or someone you know needs to find a reason to keep living. By calling 5-254-279-[employer] (9649) you'll be connected to a skilled, trained counselor at a crisis center in your area. [facility] [employer] Portal You can view and manage your care through the patient portal or by using a health care dariusz of your choosing. [employer] is a website that allows you to securely view your medical information including your hospital discharge summary, office visit summaries, medications and follow-up visits. You can also request appointments, renew medications, and request access to your medical information using a health care dariusz of your choosing, or just ask a question. You can enroll at [email or web address] or register during your next office visit. [facility] [employer], in keeping with [facility] guidance, no longer requires face masks [...] medical provider or home test kit. ?? Disclaimer: The information provided is of a general nature and is intended to be used in conjunction with the recommendations and advice of your health care practitioner. Every effort has been made to ensure that the information provided is accurate and complete at the time it is provided to you however, as your needs change, or, as new information becomes available, different or additional instructions may be required. ?? If you have questions, please consult with your primary care provider or pharmacist, as appropriate. This information is not intended to serve as substitution for assessment and evaluation by a qualified health care provider. If you do not have a primary care provider, you may find a [facility] provider by calling [facility] at [phone]. Patient Care team information Care Team Personnel Name: Jinny Blackman RN Position: [facility] RN Member Role: Primary Care Nurse Name: Anaid Brock NP Position: [facility] PCO Associate Professional Member Role: PCP Address: [address] [place] [address] Telecom: Name: Fartun Hooks RN Position: [facility] RN Member Role: Primary Care Nurse Care Team Related Persons Name: KRISTY SHUKLA Name: MARY VERA Name: DORCAS VERA Insurance Providers Guarantor name: TARIQ SHUKLA Health Plan Information #: 1 Payer: [place] [address] REPLC Member Number: [id number] Policy Number: NA Group Number: [id number] Health Plan Information #: 2 Payer: [facility] Member Number: [id number] Policy Number: NA Group Number: [id number]
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
--- OUTSIDE RECORDS SUMMARY | 2024-10-08 15:29 | XMS_ITS | Continuity of Care Document ---
Author Organization [facility] Address [address] [place] [address]- Care Team Providers Care Hoe Worker Name Role Phone Delmy MANAGER OF FINANCIAL REPORTING, Anaid Schumacher Primary Care Physician Encounter [facility] Date(s): 08/20/24 - 09/19/[facility] [address] [place] [address]- Encounter Type: Triage Allergies, Adverse Reactions, Alerts No Known Medication [...] RSV vaccine preF3, recombinant 08/08/23 Recorded SARS-CoV-2(COVID-19)mRNA-LNP vac([id number]) 06/07/23 Recorded pneumococcal 13-valent vaccine 04/13/22 Given SARS-CoV-2 (COVID-19) mRNA-1273 vaccine 12/14/21 R ecorded SARS-CoV-2 (COVID-19) mRNA-1273 vaccine 07/14/21 R ecorded SARS-CoV-2 (COVID-19) mRNA BNT-162b2 vac 10/11/20 Recorded SARS-CoV-2 (COVID-19) mRNA BNT-162b2 vac 09/20/20 Recorded pneumococcal 23-valent vaccine 09/10/20 Recorded tetanus/diphtheria/pertussis, acel(Tdap) 09/10/20 Recorded zoster vaccine, inactivated 03/01/19 Recorded zoster vaccine, inactivated 12/09/18 Recorded 1Result Comment: [facility] vial [id number] Medications Albuterol (Eqv-Proventil HFA) 90 mcg/inh inhalation aerosol 2 puffs, Inhalation, Every 6 hours, 0 Refills, Maintenance, 01/20/21 9:54:00 AM EDT, Partial fill upon patient request if the prescription is for a schedule II opioid drug. Start Date: 01/20/21 Status: Ordered Repeat number: 1 Methadone See Instructions, Liquid-22mg per day, 0 Refills, Maintenance, 04/21/21 7:07:00 AM EDT, Partial fillupon patient request if the prescription is for a schedule II opioid drug. Start Date: 04/21/21 Status: Ordered Repeat number: 1 metoprolol 25 mg oral tablet, extended release 12.5 mg, 0.5, tablet, By Mouth, Daily, # 15 tablet, Refills 11, Tot. Refills 11, Maintenance, 05/16/24 10:10:00 AM EDT, Route to Pharmacy Electronically, [id number], Partial fill upon patientrequest if the prescription is for a schedule II opioid drug., 168, cm, 05/16/24 9:15:00 EDT, Height, 72.5, kg, 03/06/24 11:13:00 EDT, Dry Weight Start Date: 05/16/24 Status: Ordered Quantity: 15.0 Unit: tablet Repeat number: 12 Symbicort 160mcg/4.5mcg Inhaler 2, puffs, Inhalation, 2 [...] therapy Confirmed Active Ventricular tachycardia Confirmed Active Social History Social History Type Response Smoking Status Never (less than 100 in lifetime) entered on: 01/20/21 Sex Sex Representation Male (finding) Patient Care team information Care Team Personnel Name: Delmy CURRY, Anaid Schumacher Position: [facility] Associate Professional Member Role: PCP Address: [address] [place] [address] Telecom: Care Team Related Persons Name: KRISTY SHUKLA Name: MARY VERA Name: DORCAS VERA Insurance Providers Guarantor name: [facility] Plan Information #: 1 Payer: MEDICARE HMO BLUE [id number] REPLC Member Number: NA Policy Number: NA Group Number: NA
--- OUTSIDE RECORDS SUMMARY | 2024-10-08 15:29 | XMS_ITS | Continuity of Care Document ---
Author Organization [facility] Address [address] [place] [address]- Care Team Providers Care Program Director Air Talent Name Role Phone Delmy INSTITUTIONAL RESEARCH COORDINATOR, Anaid Schumacher Primary Care Physician [place] [facility] [place] - 09/21/[address] [address]- Discharge Disposition: Transferred to short-term general hospit Attending Physician: Irwin Jones MD Admitting Physician: Irwin Jones MD Referring Physician: Not on Staff, Referring MD Encounter Type: Disch ES Allergies, Adverse Reactions, Alerts No Known Medication [...] RSV vaccine preF3, recombinant 08/08/23 Recorded SARS-CoV-2(COVID-19)mRNA-LNP vac(frp180) 06/07/23 Recorded pneumococcal 13-valent vaccine 04/13/22 Given SARS-CoV-2 (COVID-19) mRNA-1273 vaccine 12/14/21 R ecorded SARS-CoV-2 (COVID-19) mRNA-1273 vaccine 07/14/21 R ecorded SARS-CoV-2 (COVID-19) mRNA BNT-162b2 vac 10/11/20 Recorded SARS-CoV-2 (COVID-19) mRNA BNT-162b2 vac 09/20/20 Recorded pneumococcal 23-valent vaccine 09/10/20 Recorded tetanus/diphtheria/pertussis, acel(Tdap) 09/10/20 Recorded zoster vaccine, inactivated 03/01/19 Recorded zoster vaccine, inactivated 12/09/18 Recorded 1Result Comment: [facility] vial [id number] Medications Albuterol (Eqv-Proventil HFA) 90 mcg/inh inhalation aerosol 2 puffs, Inhalation, Every 6 hours, 0 Refills, Maintenance, 01/20/21 9:54:00 AM EDT, Partial fill upon patient request if the prescription is for a schedule II opioid drug. Start Date: 01/20/21 Status: Ordered Repeat number: 1 magnesium oxide 400 mg oral capsule 1 [...] 10:10:00 AM EDT, Route to Pharmacy Electronically, [facility]/pharmacy #[id number], Partial fill upon patientrequest if the prescription is for a schedule II opioid drug., 168, cm, 05/16/24 9:15:00 EDT, Height, 72.5, kg, 03/06/24 11:13:00 EDT, Dry Weight Start Date: 05/16/24 Status: Ordered Quantity: 15.0 Unit: tablet Repeat number: 12 MorPHINE Inj 2 mg, Injection, IV Push Slowly, Every 5 minutes for 3 doses/times, PRN for Chest Pain, Keep SBP greater than 100 mm Hg, Routine, 09/21/24 4:06:00 PM EST Start Date: 09/21/24 Stop Date: 09/22/24 Status: Discontinued Repeat number: 1 Symbicort 160mcg/4.5mcg Inhaler 2, puffs, Inhalation, 2 times a day, # 6 Gm, Refills 0, Maintenance, 11/22/23 10:07:00 AM EDT, Aerosol Start Date: 11/22/23 Stop Date: 12/22/23 Status: Ordered Quantity: 6.0 Unit: g Repeat number: 1 Problem List Condition Confirmation Course Effective Dates Status H ealt Status Informant Asthma with COPD Confirmed Active Cirrhosis of liver Confirmed Active Drug-induced constipation Confirmed Active Chronic GERD Confirmed Active Gastroesophageal reflux disease without esophagitis Confirmed Active History of splenectomy Confirmed Active History of vertigo Confirmed Active History of hepatitis C Confirmed Active Actinic keratitis Confirmed Active Unexplained night sweats Confirmed Active Opioid dependence on agonist therapy Confirmed Active Ventricular tachycardia Confirmed Active Results Radiology Reports * Exam Date Time Procedure Performing Provider Status 09/21/24 4:[address] Angio Abdomen Bryce Alas [facility] (Verified) Notes: (CT Angio Abdomen) Reason For Exam: Renal artery dissection suspected;Other: RESULT: CT Angio Abdomen PROCEDURE: CT Angio Chest, CT Angio Abdomen CLINICAL INDICATION: Severe pain while working on a gym. Concern of acute nontraumatic aortic disease. TECHNIQUE: Examination initially performed without contrast through the thoracic aorta. During uneventful administration intravenous contrast, thin section axial images were obtained of the chest and abdomen in arterial phase. Multiplanar reformats were computed. 100 cc of Isovue 300 was administered intravenously. 3D and MIP reconstructions were performed. Weight-based protocol using automatic tube modulation was used to optimize exposure parameters. RADIATION DOSE PARAMETERS: CTDIvol Body: 17.26 mGy, DLP Body: 1743 mGy*cm. COMPARISON: No prior examination. FINDINGS: CTA: Pulmonary arteries: No central or lobar pulmonary embolism.58. Thoracic aorta: No thoracic aortic aneurysm or dissection.. Abdominal aorta: No abdominal aortic aneurysm or dissection. Celiac axis: Normal. Superior mesenteric artery: Normal. Inferior mesenteric artery: Normal. Renal arteries: Normal single renal artery on both sides.. Visualized Iliac arteries: No aneurysm or dissection. The right common iliac artery has atherosclerotic plaque with 3 small apparent areas of ulceration.. OTHER FINDINGS: TRACHEA AND MAINSTEM BRONCHI: Patent without evidence of tracheal or endobronchial lesion. LUNGS AND PLEURA: There is a 4 mm fissural lymph node minor fissure image 55 series 501. Mild dependent atelectasis bilaterally. The lungs are otherwise clear. No pleural effusion. No pneumothorax. MEDIASTINUM AND SHYANN: The heart is of normal size. No pericardial effusion. Focally prominent coronary calcification proximal left anterior descending with small amounts of calcification right coronary artery and circumflex.. There is no mediastinal or hilar adenopathy.. There is no esophageal abnormality. BONES OF THE CHEST: There is no thoracic spine compression fracture. There are a few old healed rib fractures bilaterally. There is no new fracture. No fractures.. No fracture visualized scapula and clavicle.. DIAPHRAGM: Unremarkable. LIVER: No significant focal abnormality. GALLBLADDER: Normal size. No calcified stones. BILE DUCTS: No biliary dilatation. SPLEEN: The patient has history of splenectomy. Splenule's are present in the expected location of the spleen with the largest measuring 5.7 cm.. PANCREAS: Normal. ADRENAL GLANDS: Normal. KIDNEYS AND URETERS: Right Kidney: 4.4 cm simple cyst. Otherwise normal.. Left Kidney: Normal. STOMACH, SMALL BOWEL AND LARGE BOWEL: Stomach: Normal. Small and Large Bowel: The visualized small and large bowel are normal. PERITONEUM, RETROPERITONEUM, OMENTUM AND MESENTERY: There is no free air. . There is no ascites. LYMPH NODES: No enlarged lymph nodes ABDOMINAL WALL: No abdominal wall hernia BONES OF THE ABDOMEN : There is no compression fracture. No spondylolysis. Trace grade 1 spondylolisthesis L4 on L5. Disc space narrowing L4-L5 and L5-S1. Degenerative changes in the facets L3-L4 and L4-L5. No disc herniation. Mild central spinal stenosis L4-L5. IMPRESSION: CTA 1. No central or lobar pulmonary embolism.. 2. No thoracic aortic aneurysm or dissection. 3. No abdominal aortic aneurysm. 4. The normal diameter right common iliac artery has moderate atherosclerosis with as many as 3 small areas of ulceration of plaque.. CHEST 1. No acute pulmonary or pleural abnormality.. 2. No acute mediastinal abnormality. 3. Coronary artery calcification as noted above. ABDOMEN 1. No acute soft tissue abnormality.. 2. Incidental note of prior splenectomy with multiple splenules present. WSN: [id number] Ordering Physician: Irwin Jones Dictated By: Roger Morales MD Dictated Date/Time: 09/21/24 4:40 pm Reviewed By: Roger Morales MD Signed By: Roger Morales MD Signed Date/Time: 09/21/24 4:40 pm Transcribed By: LOW Transcribed Date/Time: 09/21/24 4:15 pm * Exam Date Time Procedure Performing Provider Status 09/21/24 4:[address] Angio Chest Yamilka Alas; Aut h (Verified) Notes: (CT Angio Chest) Reason For Exam: Aortic disease, nontraumatic;Other: RESULT: CT Angio Chest PROCEDURE: CT Angio Chest, CT Angio Abdomen CLINICAL INDICATION: Severe pain while working on a gym. Concern of acute nontraumatic aortic disease. TECHNIQUE: Examination initially performed without contrast through the thoracic aorta. During uneventful administration intravenous contrast, thin section axial images were obtained of the chest and abdomen in arterial phase. Multiplanar reformats were computed. 100 cc of Isovue 300 was administered intravenously. 3D and MIP reconstructions were performed. Weight-based protocol using automatic tube modulation was used to optimize exposure parameters. RADIATION DOSE PARAMETERS: CTDIvol Body: 17.26 mGy, DLP Body: 1743 mGy*cm. COMPARISON: No prior examination. FINDINGS: CTA: Pulmonary arteries: No central or lobar pulmonary embolism.58. Thoracic aorta: No thoracic aortic aneurysm or dissection.. Abdominal aorta: No abdominal aortic aneurysm or dissection. Celiac axis: Normal. Superior mesenteric artery: Normal. Inferior mesenteric artery: Normal. Renal arteries: Normal single renal artery on both sides.. Visualized Iliac arteries: No aneurysm or dissection. The right common iliac artery has atherosclerotic plaque with 3 small apparent areas of ulceration.. OTHER FINDINGS: TRACHEA AND MAINSTEM BRONCHI: Patent without evidence of tracheal or endobronchial lesion. LUNGS AND PLEURA: There is a 4 mm fissural lymph node minor fissure image 55 series 501. Mild dependent atelectasis bilaterally. The lungs are otherwise clear. No pleural effusion. No pneumothorax. MEDIASTINUM AND SHYANN: The heart is of normal size. No pericardial effusion. Focally prominent coronary calcification proximal left anterior descending with small amounts of calcification right coronary artery and circumflex.. There is no mediastinal or hilar adenopathy.. There is no esophageal abnormality. BONES OF THE CHEST: There is no thoracic spine compression fracture. There are a few old healed rib fractures bilaterally. There is no new fracture. No fractures.. No fracture visualized scapula and clavicle.. DIAPHRAGM: Unremarkable. LIVER: No significant focal abnormality. GALLBLADDER: Normal size. No calcified stones. BILE DUCTS: No biliary dilatation. SPLEEN: The patient has history of splenectomy. Splenule's are present in the expected location of the spleen with the largest measuring 5.7 cm.. PANCREAS: Normal. ADRENAL GLANDS: Normal. KIDNEYS AND URETERS: Right Kidney: 4.4 cm simple cyst. Otherwise normal.. Left Kidney: Normal. STOMACH, SMALL BOWEL AND LARGE BOWEL: Stomach: Normal. Small and Large Bowel: The visualized small and large bowel are normal. PERITONEUM, RETROPERITONEUM, OMENTUM AND MESENTERY: There is no free air. . There is no ascites. LYMPH NODES: No enlarged lymph nodes ABDOMINAL WALL: No abdominal wall hernia BONES OF THE ABDOMEN : There is no compression fracture. No spondylolysis. Trace grade 1 spondylolisthesis L4 on L5. Disc space narrowing L4-L5 and L5-S1. Degenerative changes in the facets L3-L4 and L4-L5. No disc herniation. Mild central spinal stenosis L4-L5. IMPRESSION: CTA 1. No central or lobar pulmonary embolism.. 2. No thoracic aortic aneurysm or dissection. 3. No abdominal aortic aneurysm. 4. The normal diameter right common iliac artery has moderate atherosclerosis with as many as 3 small areas of ulceration of plaque.. CHEST 1. No acute pulmonary or pleural abnormality.. 2. No acute mediastinal abnormality. 3. Coronary artery calcification as noted above. ABDOMEN 1. No acute soft tissue abnormality.. 2. Incidental note of prior splenectomy with multiple splenules present. WSN: [id number] Ordering Physician: Irwin Jones Dictated By: Roger Morales MD Dictated Date/Time: 09/21/24 4:40 pm Reviewed By: Roger Morales MD Signed By: Roger Morales MD Signed Date/Time: 09/21/24 4:40 pm Transcribed By: LOW Transcribed Date/Time: 09/21/24 4:15 pm * Exam Date Time Procedure Performing Provider Status 09/21/24 3:44 PM Chest Portable Jean , Catrachita; Auth (Ve rified) Notes: (Chest Portable) Reason For Exam: CHF RESULT: Chest Portable Chest Portable AP sitting at 3:44 PM Hx of Present Illness: CP that started after the gym.; Reason: CHF; Clinical Question(s): CHF COMPARISON: 10/29/2022 FINDINGS: LINES AND TUBES: None. LUNGS AND PLEURA: Clear lungs. Normal pulmonary vascularity. No pleural effusion. No pneumothorax. HEART, MEDIASTINUM AND SHYANN: Heart is normal in size. Normal mediastinal and hilar contour. BONES AND SOFT TISSUES: No acute abnormality. IMPRESSION: Normal chest. WSN: [id number] Ordering Physician: Irwin Jones Dictated By: Chapo Florez MD Dictated Date/Time: 09/21/24 3:53 pm Reviewed By: Chapo Florez MD Signed By: Chapo Florez MD Signed Date/Time: 09/21/24 3:53 pm Transcribed By: LOW Transcribed Date/Time: 09/21/24 3:52 pm Vital Signs Most recent to oldest [Reference Range]: 1 2 3 Height 178 cm (09/21/24 4:27 PM) 178 cm (09/21/24 4:20 PM) 178 cm (09/21/24 4:07 PM) Weight 70 kg (09/21/24 4:27 PM) 70 kg (09/21/24 4:20 PM) 70 kg (09/21/24 4:07 PM) Oxygen Saturation [94-100 %] 98 % (09/21/24 4:27 PM) 99 % (09/21/24 4:20 PM) 99 % (09/21/24 4:07 PM) Pulse Rate [55-90 bpm] 86 bpm (09/21/24 4:27 PM) 85 bpm (09/21/24 4:20 PM) 77 bpm (09/21/24 4:07 PM) Body Mass Index [18.5-24.99 kg/m2] 22.09 kg/m2 (09/21/24 4:27 PM) 22.09 kg/m2 (09/21/24 4:20 PM) 22.09 kg/m2 (09/21/24 4:07 PM) Blood Pressure [90-138/55-84 mm Hg] 152/80mm Hg *H* (09/21/24 4:27 PM) 134/93mm Hg (09/21/24 4:20 PM) 148/71mm Hg *H* (09/21/24 4:07 PM) Respiratory Rate [16-30 br/min] 17 br/min (09/21/24 4:38 PM) 23 br/min (09/21/24 4:27 PM) 18 br/min (09/21/24 4:20 PM) Temperature [96.8-100.4 DegF] 97.8 DegF (09/21/24 3:34 PM) Mode of Delivery (Oxygen) Room air (09/21/24 4:27 PM) Room air (09/21/24 4:20 PM) Room air (09/21/24 4:07 PM) Temperature Route Temporal (09/21/24 3:34 PM) Dry Weight 70 kg (09/21/24 4:27 PM) 70 kg (09/21/24 4:20 PM) 70 kg (09/21/24 4:07 PM) Weight Obtained Via Patient/family state d (09/21/24 3:34 PM) Social History Social History Type Response Smoking Status Never (less than 100 in lifetime) entered on: 01/20/21 Sex Sex Representation Male (finding) Patient Care team information Care Team Personnel Name: Delmy CURRY, Anaid Schumacher Position: [facility] Associate Professional Member Role: PCP Address: [address] [place] [address] Telecom: Name: Fartun Hooks RN Position: S RN Member Role: Primary Care Nurse Care Team Related Persons Name: KRISTY SHUKLA Name: MARY VERA Name: DORCAS VERA Insurance Providers Guarantor name: TARIQ VAZQUEZ Health Plan Information #: 1 Payer: MEDICARE O [employer] [facility] [employer] Member Number: [id number] Policy Number: NA Group Number: [id number] Health Plan Information #: 2 Payer: MEDICARE O [facility] [employer] [employer] Member Number: [id number] Policy Number: NA Group Number: [id number]
--- OUTSIDE RECORDS SUMMARY | 2024-10-08 15:29 | XMS_ITS ---
Author Organization [facility] Address [address] [place] [address] Care Team Providers Care Molding And Trim Installer Name Role Phone JAYLEN LEDESMA Primary Care Provider Unava velvet Alas Jr, Tor Unavailable REASON FOR VISIT requesting US of liver Encounters Encounter Location Date Provider Diagnosis [facility] [address] [place] [address] 09/28/2024 Tor Alas Jr Plan Of Treatment Next Appt Details Provider Name:Tor diaz Jr, 06/12/2025 10:00:00 AM, [address], [address], [place], [address], Progress Notes * VAZQUEZDARRELLL FDOB:1960 (64 yo M)Acc No.[id number]:09/28/2024 Patient:?DARRELL SHUKLAL Jaja :1960???Age:64 Y???Sex:Male Address: [address] [place] [address] * * Date:?
== END 2024-10-08 13:39 | disposition home or self-care (01) ==
LOC: HO.HPS 13:20
PROVIDERS: PCP Nurse Practitioner Family; Visit Provider Internal Medicine
DX: J44.9 Chronic obstructive pulmonary disease, unspecified (principal); J30.9 Allergic rhinitis, unspecified
CPT/HCPCS: 99213

== ENCOUNTER → 2024-10-08 13:19 | Outpatient (BNVA) | payer MEDICARE, OTHER, SELFPAY | PROVIDERS: PCP Nurse Practitioner Family; Visit Provider Internal Medicine | DX: J44.9 Chronic obstructive pulmonary disease, unspecified (principal); J30.9 Allergic rhinitis, unspecified | CPT/HCPCS: 99212 ==

== ENCOUNTER 2024-12-19 09:30 | Outpatient (AMB) | payer MEDICARE, SELFPAY ==
[2024-12-19 09:36] VITALS: BP 94/52; PULSE 81; O2SAT 96; BMI 22.9
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
--- OUTSIDE RECORDS SUMMARY | 2024-12-19 10:12 | XMS_ITS ---
Author Organization [facility] Address [address] [place] [address] Care Team Providers Care Language Instructor Name Role Phone JAYLEN LEDESMA Primary Care [...] 06/11/2024 Encounters Encounter Location Date Provider Diagnosis [facility] [address] [facility] [address] [place] [address] 06/11/2024 Tor Alas Jr Gastroesophageal reflux disease, [...] Jr, 06/12/2025 10:00:00 AM, [address] [facility], [address], [place], [address], Progress Notes * VIVEK SHUKLA FDOB:1960 (63 yo M)Acc No.[id number]:06/11/2024 Progress Notes Patient:?VIVEK SHUKLA Provider:?Tor Alas MD :1960???Age:63 Y???Sex:Male Dov e:06/11/2024 Address:[address] [place], [place] [id number] Pcp:JAYLEN LEDESMA Subjective: * Chief Complaints: * [...] MD Date:?1 08/11/2023 Generated for Natalie morgan/Charlee/eTransmitting on:?12/19/2024 10:12 AM EDT History and Physical Notes * HPI [...]
== END 2024-12-19 10:00 | disposition home or self-care (01) ==
LOC: HO.HPS 09:31
PROVIDERS: PCP Nurse Practitioner Family; Visit Provider Internal Medicine
DX: J40 Bronchitis, not specified as acute or chronic (principal); J44.1 Chronic obstructive pulmonary disease with (acute) exacerbation
CPT/HCPCS: 99213

== ENCOUNTER → 2024-12-19 09:30 | Outpatient (BNVA) | payer MEDICARE, SELFPAY | PROVIDERS: PCP Nurse Practitioner Family; Visit Provider Internal Medicine | DX: J44.1 Chronic obstructive pulmonary disease with (acute) exacerbation (principal); J40 Bronchitis, not specified as acute or chronic | CPT/HCPCS: 99212 ==

== ENCOUNTER 2025-02-18 10:57 | Outpatient (AMB) | payer MEDICARE, SELFPAY ==
[2025-02-18 11:07] VITALS: BP 102/70; PULSE 82; O2SAT 96; BMI 22.8
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
--- OUTSIDE RECORDS SUMMARY | 2025-02-18 12:18 | XMS_ITS | Patient Health Record ---
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, unspecified hepatic cirrhosis type (K74.60) Active confirmed Problem 68230581 Drug-induced constipation (K59.03) Active confirmed Problem 251376604 Gastroesophageal reflux disease, unspecified whether esophagitis present (K21.9) Active confirmed Vital Signs Temperature 97.8 degrees Fahrenheit 06/11/2024 Blood pressure diastolic 00 mm Hg 06/11/2024 Height 67.5 in 06/11/2024 Blood pressure systolic 000 mm Hg 06/11/2024 Weight 156 lb 8 oz lbs 06/11/2024 BMI 24.15 kg/m2 06/11/2024 Encounters Encounter Location Date Provider Diagnosis [facility] [address] [place] [id number] 06/11/2024 Tor Alas Jr Gastroesophageal reflux disease, unspecified whether esophagitis present K21.9 ; Cirrhosis of liver without ascites, unspecified hepatic cirrhosis type K74.60 and Colon cancer screening Z12.11 [facility] [address] [place] [id number] 09/28/2024 Tor Alas Jr Assessments Encounter Date [...] Provider Name:Tor diaz , 06/12/2025 10:00:00 AM, [address] [place] [address], [facility] [address], [place], [address], Insurance Providers Payer Name Payer Address Payer Phone Subscriber Number Group Number Insured Name Patient Relationship to Insured Coverage Start Date Coverage End Date [facility] [address] [place] [phone] [id number] VIVEK SHUKLA Self - patient is the [...]
== END 2025-02-18 11:23 | disposition home or self-care (01) ==
LOC: HO.HPS 10:58
PROVIDERS: PCP Nurse Practitioner Family; Visit Provider Internal Medicine
DX: J44.9 Chronic obstructive pulmonary disease, unspecified (principal); R05.9 Cough, unspecified; F41.9 Anxiety disorder, unspecified; J30.9 Allergic rhinitis, unspecified
CPT/HCPCS: 99213

== ENCOUNTER → 2025-02-18 10:57 | Outpatient (BNVA) | payer MEDICARE, SELFPAY | PROVIDERS: PCP Nurse Practitioner Family; Visit Provider Internal Medicine | DX: J44.9 Chronic obstructive pulmonary disease, unspecified (principal); R05.9 Cough, unspecified; F41.9 Anxiety disorder, unspecified; J30.9 Allergic rhinitis, unspecified | CPT/HCPCS: 99212 ==